=== PATIENT | male | born 1960 | race Caucasian/White ===

== ENCOUNTER 2020-07-11 08:46 | Outpatient (CLI) | payer OTHER, SELFPAY ==
--- NOTE | 2020-07-14 01:02 | SLEEP_ITS ---
Home Sleep Test DATE OF STUDY: 07/11/2020 ORDERING DOCTOR: Buck Daugherty MD REASON FOR THE STUDY: Hypersomnia. HISTORY: This 60-year-old man is 5 feet 10 inches tall, weighing 220 pounds, with a body mass index of 31.5. He has complaints of loud snoring. There is a family history with his parents also having loud snoring. He has excessive daytime sleepiness. He constantly snores and it is frequently loud enough that others complain about it. He does not awaken at night with heartburn, belching, or coughing. He does not awaken at night short of breath. He rarely has trouble sleeping with cold. Does not gasp for breath at night or have breathing problems at night witnessed by others. He does not sweat excessively at night and does not notice his heart pounding or beating irregularly at night. He occasionally falls asleep during the day, frequently involuntarily, rarely while driving. He does not fall asleep during physical effort. He does not have loss of muscle tone with strong emotion. He does not have daytime difficulties due to excessive sleepiness. He is an senior it engineer. He does not feel paralyzed on waking or falling asleep. He occasionally has vivid dreamlike scenes upon awakening or falling asleep. He is never afraid to go to sleep and does not have nightmares. He frequently remembers his dreams, occasionally has racing thoughts. He never feels sad or depressed. He rarely has anxiety. Does not have muscular tension. Does not notice parts of his body jerking. Does not kick at night. He rarely has crawly achy feelings in his legs, rarely has leg pain at night, never has morning jaw pain. He does not grind his teeth, there is no pain during the day, no pain waking him at night, no stiffness in the morning with sore achy muscles or pain in his neck and spine. He has fatigue. Normal bedtime is 10 p.m., falling asleep within 15 minutes waking 3 times at night on average for 3 minutes. During this time, he will go urinate. He wakes in the morning at 5 a.m. He estimates 6-7 hours of sleep at night. On the weekends, he goes to bed at 12 midnight and wakes at 8 in the morning. MEDICAL COMORBIDITIES: Seasonal allergies, but no other documented chronic problems. MEDICATIONS: None. HABITS: Never smoked tobacco. Caffeine, 4 servings a day. Alcohol, 1 time per week. DESCRIPTION OF THE STUDY: On the Spencer Sleepiness Scale, his score is 17, elevated. This was conducted as an unattended type III portable home sleep test with 4-channel monitoring including respiratory effort channel, snoring channel, oxygen saturation channel, and heart rate channel. The study was scored using [facility] guidelines. Duration of the study was 6 hours 54 minutes. Apnea-hypopnea index is 37, oxygen desaturation index 36, lowest desaturation 86% with 47 apneas. Majority of the apneas, 66% or 31 were obstructive, 28% or 13 were central, 6% or 3 apneas were mixed. He had 210 hypopneas, 1219 snoring events with 246 desaturations and 1 minute spent below 88%. IMPRESSION: 1. This home sleep test shows evidence of severe obstructive sleep apnea syndrome, G47.33, with a significant amount of central apneas as well. He had 28% of his apneas scored as central. The patient may respond to auto PAP. However, it is the fact that auto PAP can worsen central sleep apnea. Due to his severity of illness, we would recommend auto PAP with pressures between 5 to 15 cm of water pressure, heated humidity, and an appropriate interface. He should be closely followed for response to therapy and improvement in the apnea-hypopnea index with a goal to have his AHI less than 5. If the patient does not respond well to this therapy, consider in-lab split-night study. 2. Elevated body mass index 31.5
== END 2020-07-11 08:47 | disposition home or self-care (01) ==
LOC: ANHCSM 08:47
PROVIDERS: PCP Family Medicine; Visit Provider Family Medicine
DX: G47.33 Obstructive sleep apnea (adult) (pediatric) (principal)
CPT/HCPCS: 95806

== ENCOUNTER 2020-09-21 01:53 | Outpatient (CLI) | payer OTHER, SELFPAY ==
[2020-09-21 19:52] LABS: SARS-CoV-2 RNA PCR Negative
== END 2020-09-21 01:54 | disposition home or self-care (01) ==
LOC: ANHCOVIDDT 01:53
PROVIDERS: Anesthesiology; PCP Family Medicine; Visit Provider Otolaryngology
DX: Z01.812 Encounter for preprocedural laboratory examination (principal); Z20.828 Contact with and (suspected) exposure to other viral communicable diseases
CPT/HCPCS: 87635; C9803; U0003

== ENCOUNTER 2020-09-24 00:30 | Day surgery (SDC) | payer OTHER, SELFPAY ==
[2020-09-10 14:52] VITALS: BMI 31.4
[2020-09-24] VITALS (8 sets, daily range): BP systolic 132–141; BP diastolic 68–95; PULSE 63–120; RESP 12–22; TEMP 36.1–36.2; O2SAT 94–99
--- NOTE | 2020-09-24 07:25 | PM.IMHP ---
H&P: HPI History of Present Illness Date/Time: 09/24/20 07:25 Chief complaint: Deviated Septum/ Turbinate Hypertrophy Narrative: Eduardo Salamanca is a 60 year old male with severe PIPE AHI 37 who has a significant deviated septum interfering with ability to utilize CPAP. Review of Systems Review of Systems: All systems reviewed & are unremarkable except as noted in HPI and below PMFSH Past Medical History Medical History Hypersomnia Family History Family History Mother Family history of dementia, Onset Age: 97 Grandparent Family history of lung disease, Onset Age: 68 Family history of congestive heart failure, Onset Age: 87 Father Family history of congestive heart failure, Onset Age: 86 Social History Social History Smoking status: Never smoker Second hand tobacco smoke exposure: No Alcohol intake: current Substance use: never Living arrangements: with family Spiritual care concerns: No Meds Home Medications and Allergies Home Medications Medication Instructions Recorded Confirmed Type Adult One Daily Multivitamin 09/10/20 History [facility] 09/10/20 History ascorbate sodium (vitamin C) 09/10/20 History co [id number] oil-omega 3-E 09/10/20 History testosterone 09/10/20 History Allergies Allergy/AdvReac Type Severity Reaction Status Date / Time Penicillins Allergy Unknown Rash Verified 09/10/20 14:33 Exam Narrative: Exam Narrative: RIght septal deviation, AHI 37 Assessment and Plan Assessment and plan (1) Deviated nasal septum: Code(s): J34.2 - Deviated nasal septum Status: Acute Assessment and Plan: Here for septoplasty and turbinoplasty. Anticipate initiating CPAP after recovery from surgery. Refer to outpatient H&p for full details.
--- NOTE | 2020-09-24 07:27 | WPDHPUPDATE1 ---
History and Physical Update Update Date/Time: 09/24/20 07:27 History and Physical has been reviewed, including an updated exam of the patient. There are NO changes in the patient's condition. Risks, benefits, and alternatives have been discussed and questions answered. Patient agrees to proceed with procedure.
[2020-09-24] MEDS: OXYMETAZOLINE HCL 0.05% NAS 15 ML BTL (*BKC) 1 SPRAY NASAL (08:16)
[2020-09-24] MEDS: ACETAMINOPHEN 500 MG TABLET 1000 MG PO (08:16)
[2020-09-24] MEDS: LACTATED RINGERS 1,000 ML 30 ML IV CONT ×2 (08:25→10:17)
--- NOTE | 2020-09-24 08:29 | WPDANESEPPF ---
Anes - Initial Pre Proc Eval Procedure: Operation Date: 09/24/20 09:00 Proposed Procedures p Septoplasty - Edgar Flowers MD s Bilateral Turbinate Reduction - Edgar Flowers MD Date/Time: 09/24/20 08:29 Surgeon: Edgar Flowers MD Pre Op Diagnosis: Deviated Septum/ Turbinate Hypertrophy Patient Data Age: 60 Gender: M Height: 1.7 m Weight: 91 kg Allergies Allergy/AdvReac Type Severity Reaction Status Date / Time Penicillins Allergy Unknown Rash Verified 09/24/20 08:29 Home Medications Medication Instructions Recorded Confirmed Type Adult One Daily Multivitamin 09/10/20 History [facility] 09/10/20 History ascorbate sodium (vitamin C) 09/10/20 History co [id number]-twpz oil-omega 3-E 09/10/20 History testosterone 09/10/20 History Patient hx anesthesia problems: none Family hx anesthesia problems: none PMFSH Past Medical History Medical History Hypersomnia Family History Family History Mother Family history of dementia, Onset Age: 97 Grandparent Family history of lung disease, Onset Age: 68 Family history of congestive heart failure, Onset Age: 87 Father Family history of congestive heart failure, Onset Age: 86 Social History Social History Smoking status: Never smoker Second hand tobacco smoke exposure: No Alcohol intake: current Substance use: never Living arrangements: with family Spiritual care concerns: No Anes - Eval Final PreProcedure Day of Procedure 09/24/20 08:29 Patient weight: obese Heart: regular rate and rhythm Lungs: clear to auscultation and normal air movement Airway: Mallampati scale class II Neurological: alert and oriented Last oral intake: >/= 8 hours ASA classification: II Emergent: no Anesthetic plan: proceed Anesthesia type and monitoring: general ETT Informed Consent: The patient's anesthetic plan and its attendant risks and benefits were discussed with the patient/family/POA. Questions were solicited and answers provided to the satisfaction of the patient/family/POA.
[2020-09-24] MEDS: ceFAZolin 2 GM/D5W 50 ML 2 GM/50 ML BAG IVPB (08:48)
[2020-09-24] MEDS: LIDO 1%/EPINEPHRINE 1:100,000 20 ML VIAL INFILTRATE (09:11)
--- NOTE | 2020-09-24 10:13 | P.OP_ITS ---
Procedure Note - Detailed Date of procedure: 09/24/20 Pre-op diagnosis: Deviated Septum/ Turbinate Hypertrophy Post-op diagnosis: same Procedure performed: Septoplasty, bilateral inferior turbinoplasty Description of procedure: DESCRIPTION OF PROCEDURE: ? After obtaining informed consent and proper site verification the patient was brought to the operating room and placed on the operating table in the supine position. They were placed under general endotracheal anesthesia by the anesthesia provider. The patient was then draped in standard fashion for septoplasty and turbinoplasty. A timeout was performed and the correct patient and procedure were verified. The nasal cavity was injected with 1% lidocaine with 1-100,000 epinephrine and packed with afrin-soaked cottonoid pledgets. ? Attention was then directed to the nasal septum. A hemitransfixion incision was made in the left caudal septum and a mucoperichondrial flap was elevated in the usual fashion. The flap was elevated under endoscopic visualization and the remainder of the case was performed with endoscopic assistance. Using a D- knife, an incision was made through the cartilaginous septum with care to preserve the appropriate caudal and dorsal ?L-strut? of cartilage. The cartilage was then disarticulated from the bony-cartilaginous junction and the deviated cartilage was removed. Further deviated bone and cartilage was removed from the maxillary crest and posterior bony septum with care to avoid injury to the mucoperichondrial flap using a combination of dissection and Alexis- Cisco forceps. Once this was completed, the hemitransfixion incision was closed using simple interrupted 4-0 chromic suture. A quilting stitch to reapproximate the mucoperichondrial flaps was then placed using 4-0 plain gut suture on a Tha needle. ? Next attention was directed to the turbinates. Using a 0? telescope and 2mm turbinate blade microdebrider, a stab incision was made in the anterior face of the turbinate and dissection was carried posterior to perform submucosal resection. Next the turbinate was outfractured using a blunt instrument. A similar procedure was then performed on the right-hand side without difficulty. Rodriguez splints covered in mupirocin ointment were placed in the nasal cavity and secured to the membranous septum using a 3-0 Prolene suture. ?The patient was awakened from general anesthesia extubated in the operating room, and transpo rted to the recovery room in stable condition without complication. Anesthesia: GREGORIO Surgeon: Edgar Flowers MD Estimated blood loss (mL): 10 Drains: No Packing: Yes (rodriguez splints) Pathology: none sent Complications: No immediate complications Condition: stable Disposition: same day Findings: Severe right septal deviation
[2020-09-24] MEDS: fentaNYL CITRATE INJ (*CRX) 100 MCG/2 ML VIAL 25 MCG IV PUSH (10:27)
== END 2020-09-24 12:20 | disposition home or self-care (01) ==
PROVIDERS: PCP Family Medicine; Visit Provider Otolaryngology
PROC: (CPT 30520; principal; 2020-09-24 09:00)
PROC: (CPT 30140; 2020-09-24 09:00)
DX: J34.2 Deviated nasal septum (principal); J34.3 Hypertrophy of nasal turbinates
CPT/HCPCS: 30140; 30520; A9270; J0330; J0690; J1100; J2250; J2370; J2405; J2704; J3010; J7120

== ENCOUNTER 2021-09-13 01:41 | Day surgery (SDC) | payer OTHER, SELFPAY ==
[2021-08-29 14:25] VITALS: BMI 25.9
--- NOTE | 2021-09-12 12:45 | PM.HPGS ---
History of Present Illness History of Present Illness Consent: Risks, benefits, and alternatives have been discussed and questions answered. Patient agrees to proceed with procedure. Chief complaint: family hx of colon ca Narrative: Eduardo Salamanca is a 61 year old male referred for colon cancer screening. 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 Obstructive sleep apnea Family History Family History Mother Family history of dementia, Onset Age: 97 Grandparent Family history of lung disease, Onset Age: 68 Family history of congestive heart failure, Onset Age: 87 Father Family history of congestive heart failure, Onset Age: 86 Social History Social History Smoking status: Never smoker Second hand tobacco smoke exposure: No Alcohol intake: current Drinks per week: 4 Substance use: never Substance use type: does not use Living arrangements: with family Spiritual care concerns: No Meds Home Medications and Allergies Home Medications Medication Instructions Recorded Confirmed Type Adult One Daily Multivitamin 1 tablet PO DAILY 09/10/20 09/13/21 History [facility] 1 tablet PO DAILY 09/10/20 09/13/21 History ascorbate sodium (vitamin C) 1 tablet PO DAILY 09/10/20 09/13/21 History co [id number] oil-omega 3-E 1 tablet PO DAILY 09/10/20 09/13/21 History testosterone 1 tablet PO DAILY 09/10/20 09/13/21 History fluticasone propionate 50 1 spray INTRANASAL BID 04/22/21 09/13/21 History mcg/actuation nasal spray,suspension loratadine 10 mg tablet 10 mg PO DAILY PRN 04/22/21 09/13/21 History Allergies Allergy/AdvReac Type Severity Reaction Status Date / Time Penicillins Allergy Unknown Rash Verified 09/13/21 12:50 Exam Resp: Auscultation: clear to auscultation bilaterally Cardio: Rate: regular rate Rhythm: regular rhythm GI: GI Palp: Yes Soft to palpation and No Tenderness to palpation present (GI) Assessment and Plan Assessment and plan (1) Colon cancer screening: Code(s): Z12.11 - Encounter for screening for malignant neoplasm of colon Status: Acute Assessment and Plan: Colonoscopy with possible biopsy or polypectomy or cautery or injection of substances.
[2021-09-13 12:54] VITALS: BP 131/80; PULSE 73; RESP 18; TEMP 36.6; O2SAT 100
[2021-09-13] MEDS: LACTATED RINGERS 1,000 ML 150 ML IV CONT (13:04)
--- NOTE | 2021-09-13 13:19 | WPDANESEPPF ---
Anes - Initial Pre Proc Eval Procedure: Operation Date: 09/13/21 13:30 Proposed Procedures p Screening Colonoscopy - Abdulkadir Jon MD Date/Time: 09/13/21 13:19 Surgeon: Abdulkadir Jon MD Pre Op Diagnosis: family hx of colon ca Patient Data Age: 61 Gender: M Height: 1.78 m Weight: 78.1 kg Last Vital Signs Temp 36.6 C 09/13/21 12:54 Pulse 73 09/13/21 12:54 Resp 18 09/13/21 12:54 BP 131/80 09/13/21 12:54 Pulse Ox 100 09/13/21 12:54 Allergies Allergy/AdvReac Type Severity Reaction Status Date / Time Penicillins Allergy Unknown Rash Verified 09/13/21 12:50 Home Medications Medication Instructions Recorded Confirmed Type Adult One Daily Multivitamin 1 tablet PO DAILY 09/10/20 09/13/21 History [facility] 1 tablet PO DAILY 09/10/20 09/13/21 History ascorbate sodium (vitamin C) 1 tablet PO DAILY 09/10/20 09/13/21 History co [id number] oil-omega 3-E 1 tablet PO DAILY 09/10/20 09/13/21 History testosterone 1 tablet PO DAILY 09/10/20 09/13/21 History fluticasone propionate 50 1 spray INTRANASAL BID 04/22/21 09/13/21 History mcg/actuation nasal spray,suspension loratadine 10 mg tablet 10 mg PO DAILY PRN 04/22/21 09/13/21 History Patient hx anesthesia problems: none Family hx anesthesia problems: none Results Review: All pre-operative results and documents have been reviewed as part of the pre-operative evaluation. 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 Obstructive sleep apnea Family History Family History Mother Family history of dementia, Onset Age: 97 Grandparent Family history of lung disease, Onset Age: 68 Family history of congestive heart failure, Onset Age: 87 Father Family history of congestive heart failure, Onset Age: 86 Social History Social History Smoking status: Never smoker Second hand tobacco smoke exposure: No Alcohol intake: current Drinks per week: 4 Substance use: never Substance use type: does not use Living arrangements: with family Spiritual care concerns: No Anes - Eval Final PreProcedure Day of Procedure 09/13/21 13:19 Patient weight: normal Heart: regular rate and rhythm Lungs: clear to auscultation Airway: Mallampati scale class II Neurological: alert and oriented Last oral intake: >/= 8 hours ASA classification: II Emergent: no Anesthetic plan: proceed Anesthesia type and monitoring: general GIVS and standard monitoring Results Review: All pre-operative results and documents have been reviewed as part of the pre-operative evaluation. Informed Consent: The patient's anesthetic plan and its attendant risks and benefits were discussed with the patient/family/POA. Questions were solicited and answers provided to the satisfaction of the patient/family/POA.
[2021-09-13] MEDS: SIMETHICONE ORAL SUSPENSION 20 MG/0.3 ML 30 ML BOTTLE 0.6 ML IRRIGATION (13:46)
[2021-09-13 13:58] VITALS: BP 99/61; PULSE 73; RESP 19; O2SAT 99
[2021-09-13 14:08] VITALS: BP 99/66; PULSE 66; RESP 22; O2SAT 100
[2021-09-13 14:18] VITALS: BP 109/71; PULSE 61; RESP 23; O2SAT 100
== END 2021-09-13 14:32 | disposition home or self-care (01) ==
PROVIDERS: PCP Family Medicine; Visit Provider Internal Medicine Gastroenterology
PROC: 0DJD8ZZ Inspection of Lower Intestinal Tract, Via Natural or Artificial Opening Endoscopic (ICD-10-PCS; CPT 45378; principal; 2021-09-13 13:30)
DX: Z12.11 Encounter for screening for malignant neoplasm of colon (principal); Z80.0 Family history of malignant neoplasm of digestive organs; K64.8 Other hemorrhoids; G47.10 Hypersomnia, unspecified; G47.33 Obstructive sleep apnea (adult) (pediatric)
CPT/HCPCS: 45378; J2001; J2704; J7120

== ENCOUNTER 2023-10-07 11:16 | Inpatient (IN) | payer OTHER, SELFPAY ==
[2023-10-07] VITALS (13 sets, daily range): BP systolic 123–135; BP diastolic 69–85; PULSE 67–96; RESP 13–23; TEMP 36.2–37.4; O2SAT 95–100; BMI 26.6
--- NOTE | ~2023-10-07 | XR_ITS ---
Clinical Indication: Fever PA and lateral views of the chest: Comparison: None Findings: The lungs are clear, without evidence of focal consolidation or pleural effusion. Cardiome diastinal silhouette is within normal limits. Bones and soft tissues are unremarkable. Impression: Normal chest. Reviewed, dictated and finalized at [facility]. PER FEEDER Impression: Normal chest.
--- NOTE | ~2023-10-07 | CT_ITS ---
EXAMINATION: CT chest abdomen pelvis wo con DATE: 10/07/2023 15:30 INDICATION: Sepsis. TECHNIQUE: Computed tomography (CT) of the chest, abdomen, and pelvis was performed without intraveno us contrast. Automated exposure control and iterative reconstruction technique were employed. The dos e-length product was 944.73 mGy-cm. COMPARISON: None FINDINGS: CHEST CT: The lungs demonstrate mild atelectasis. There is hyperdense material in posterior inferior right lowe r lobe and subcarinal lymph nodes that may be old granulomatous disease or old aspirated material suc h as barium. There is a trace right pleural effusion. The heart size is normal. There is a small mihir cardial effusion. There are coronary artery calcifications. There is severe thoracic spondylosis. The re is mild chronic anterior wedging of multiple vertebral bodies. ABDOMEN/PELVIS CT: The liver is normal. The gallbladder is contracted. The spleen, pancreas, adrenal glands, and left ki dney are normal. The right kidney is enlarged and demonstrates areas of peripheral hypoattenuation. T he prostate is mildly enlarged. The appendix is normal. There are no dilated loops of bowel. There ar e no pathologically enlarged lymph nodes. There is no free intraperitoneal fluid. There is a right in guinal hernia containing fat. There is mild lumbar spondylosis. IMPRESSION: 1. Enlarged right kidney with peripheral hypoattenuation. The differential diagnosis includes pyelone phritis and subacute subcapsular hematoma. Consider abdomen MRI without and with contrast. 2. Small pericardial effusion. Reviewed, dictated and finalized at location A. [employer] IMPRESSION: 1. Enlarged right kidney with peripheral hypoattenuation. The differential diag nosis includes pyelonephritis and subacute subcapsular hematoma. Consider abdom en MRI without and with contrast. 2. Small pericardial effusion.
--- NOTE | ~2023-10-07 | US_ITS ---
EXAMINATION: US renal BI DATE: 10/08/2023 19:01 INDICATION: Acute renal insufficiency. Abnormal CT . TECHNIQUE: Multiple ultrasound grayscale images of the kidneys were obtained. COMPARISON: None. FINDINGS: The right kidney measures 11.3 x 6.6 x 5.7 cm. The left kidney measures 11.1 x 7.0 x 5.8 cm. The kidn eys demonstrate normal echogenicity. Suggestion of minimal perinephric fluid along the right kidney. There is no hydronephrosis in either kidney. No stones identified. The bladder is normal with bilate ral ureteral jets visualized on color Doppler.. IMPRESSION: 1. Nonspecific minimal right perinephric fluid. Otherwise normal kidneys without hydronephrosis. Reviewed, dictated and finalized at location A. [employer] IMPRESSION: 1. Nonspecific minimal right perinephric fluid. Otherwise normal kidneys witho ut hydronephrosis.
--- NOTE | ~2023-10-07 | US_ITS ---
EXAMINATION: US abdomen limited DATE: 10/07/2023 17:13 INDICATION: sepsis, elevated LFTs TECHNIQUE: Multiple grayscale and Doppler ultrasound images of limited portions of the abdomen were o btained. COMPARISON: None available. FINDINGS: The visualized portions of the pancreas are normal. The liver is normal with normal echogen icity and echotexture. No surface nodularity. Normal hepatopetal flow in the main portal vein. The ga llbladder is contracted, no abnormal wall thickening, pericholecystic fluid or stones. The common gabrielle e duct measures 7 mm. There was no sonographic Justice sign. IMPRESSION: Contracted gallbladder which limits evaluation. No pericholecystic fluid or stones. Otherwise normal limited abdominal ultrasound findings. Reviewed, dictated and finalized at location [facility]. [facility] IMPRESSION: Contracted gallbladder which limits evaluation. No pericholecystic fluid or sto marzena. Otherwise normal limited abdominal ultrasound findings.
--- NOTE | 2023-10-07 12:07 | ED.HA ---
HPI - Headache General Chief Complaint: Headache Stated Complaint: headache, fever since thursday Time Seen by Provider: 10/07/23 12:03 History of Present Illness HPI Narrative: Patient is a 63-year-old male with no past medical history here today with fatigue, headache, diarrhea. Patient states that he began feeling sick the day after , 10/02. Patient notes that the symptoms began with chills, fever and diarrhea. He denies any known sick contacts. He did see family over . He notes that he called his primary care doctor on Thursday and they prescribed him ciprofloxacin for a ?infection ?. He is unsure of what type of infection they are treating. He does note a mild cough, no nasal congestion, no chest pain, no shortness of breath. He notes that since taking the antibiotics his fever does seem to have resolved but he continues to feel poorly. He notes generalized fatigue, decreased PO intake, and high sensitivity over all of his skin and head. Related Data Home Medications Medication Instructions Recorded Confirmed Adult One Daily Multivitamin 1 tablet PO DAILY 09/10/20 10/07/23 [facility] 1 tablet PO DAILY 09/10/20 10/07/23 ascorbate sodium (vitamin C) 1 tablet PO DAILY 09/10/20 10/07/23 co [id number] oil-omega 3-E 1 tablet PO DAILY 09/10/20 10/07/23 fluticasone propionate 50 1 spray intranasal BID 04/22/21 10/07/23 mcg/actuation nasal spray,suspension loratadine 10 mg tablet (Claritin) 10 mg PO DAILY PRN allergy symptoms 04/22/21 10/07/23 Allergies Allergy/AdvReac Type Severity Reaction Status Date / Time Penicillins Allergy Unknown Rash Verified 10/07/23 11:36 Review of Systems Review of Systems: All systems reviewed & are unremarkable except as noted in HPI and below PMFSH Past Medical History Medical History (Updated 10/07/23 @ 17:15 by Sahra Denny MD) Abdominal pain BMI 26.0-26.9,adult BMI 28.0-28.9,adult BMI 31.0-31.9,adult Central sleep apnea Colon cancer screening COVID-19 (~11/20/21) Encounter for wellness examination in adult Hypersomnia Hypogonadism male Total testosterone 400, free testosterone 49.5 on 12/02/2022. 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 Obstructive sleep apnea Overweight (BMI 25.0-29.9) Family History Family History Mother Family history of dementia, Onset Age: 97 Grandparent Family history of lung disease, Onset Age: 68 Family history of congestive heart failure, Onset Age: 87 Father Family history of congestive heart failure, Onset Age: 86 Social History Social History (Updated 12/11/22 @ 16:35 by Samantha Aparicio MA) Smoking status: Never smoker Second hand tobacco smoke exposure: No Alcohol intake: current Drinks per week: 3 Substance use: never Substance use type: does not use Lack of Transportation: No Lack of Food: Never True Current Housing: I Have Housing Concerned About Future Housing: No Difficulty Paying Gas/Electric Bills: No Difficulty Paying for Meds: No Currently Unemployed: No Education: Associate Degree Difficulty w/ Childcare or Family Care: No Living arrangements: with family Spiritual care concerns: No Exam Narrative: GENERAL: Well-appearing, well-nourished, and in no acute distress. HEAD: Normocephalic, atraumatic. EYES: PERRLA and EOMI. ENT: Nares clear. Mucous membranes dry. NECK: Supple. CHEST: Clear to auscultation. No respiratory distress. HEART: Regular rate and rhythm. Normal peripheral pulses. ABDOMEN: Soft, nontender, nondistended. EXTREMITIES: Normal range of motion. No edema. SKIN: Warm, dry, no rash. NEURO: No focal deficits. Alert and oriented x3. PSYCH: Normal mood and affect. Course Course Emergency Course: Chart review performed. Here with headache, fever, decreased appetite since Thursday. Triage vitals normal, afebrile. Primary care
[2023-10-07 12:22] LABS: Influenza A QL RT-PCR Negative (Negative); Influenza B QL RT-PCR Negative (Negative); SARS-CoV-2 RNA PCR Negative (Negative)
[2023-10-07] MEDS: SODIUM CHLORIDE 0.9% IV 1,000 ML 999 ML IV CONT ×3 (13:36→16:26)
[2023-10-07] MEDS: ONDANSETRON INJ 4 MG/2 ML VIAL IV PUSH (13:36)
[2023-10-07] MEDS: ACETAMINOPHEN 500 MG TABLET 1000 MG PO (13:37)
[2023-10-07 13:43] LABS: Basophils Absolute Auto 0.1 K/mm3 (0.0-0.1); Basophils Percent Auto 0.4 % (0.2-1.2); Hematocrit 40.3 % (42.0-52.0); Hemoglobin 14.2 g/dL (14.0-18.0); Immature Granulocyte Absolute 0.41 K/mm3 (0.00-0.031); Immature Granulocyte Percent A 2.5 % (0-0.5); Lymphocytes Absolute Auto 0.66 K/mm3 (0.9-3.2); Lymphocytes Percent Auto 4.1 % (18.3-44.2); Mean Corpuscular HGB Conc 35.2 g/dl (32-36); Mean Corpuscular Hemoglobin 29.3 pg (26-34); Mean Corpuscular Volume 83.1 fl (80-100); Mean Platelet Volume 10.8 fl (7.4-10.4); Monocytes Absolute Auto 1.9 K/mm3 (0.1-0.6); Monocytes Percent Auto 11.7 % (2.6-8.5); Neutrophils Absolute Auto 13.1 K/mm3 (1.3-6.7); Neutrophils Percent Auto 81.3 % (45.5-73.1); Platelet Count Result 172 k/mm3 (150-375); Red Blood Count 4.85 M/mm3 (4.6-6.20); Red Cell Distribution Width 14.5 % (11.5-14.5); White Blood Count 16.1 K/mm3 (4.5-10.0)
[2023-10-07 14:29] LABS: Alanine Aminotransferase 177 U/L (6-50); Albumin Level 3.5 g/dL (3.5-5.1); Alkaline Phosphatase 251 U/L (38-126); Anion Gap 11 mmol/L (8-16); Aspartate Amino Transferase 185 U/L (17-59); Bilirubin,Total 1.2 mg/dL (0.2-1.3); Blood Urea Nitrogen 83 mg/dL (9-20); Calcium 9.2 mg/dL (8.4-10.2); Carbon Dioxide 26 mmol/L (22-30); Chloride 92 mmol/L (98-107); Estimated Glomerular Filt Rate 17; Glucose 136 mg/dL (65-110); Magnesium 2.9 mg/dL (1.6-2.3); Potassium 3.2 mmol/L (3.4-5.0); Sodium 129 mmol/L (137-145)
[2023-10-07 14:51] LABS: Appearance Urine Cloudy (Clear); Bacteria Urine None Seen /hpf; Bilirubin Urine Negative (Negative); Blood Urine 2+ (Negative); Color Urine Yellow (Yellow); Glucose Urine UA Negative (Negative); Ketones Urine Negative (Negative); Leukocyte Esterase Ur Negative LEU/UL (Negative); Need Manual Microscopic Reviewed; Nitrate Urine Negative (Negative); Non Pathogenic Casts >20; Protein Urine 2+ mg/dL (Negative); RBC Urine 0-2 /hpf (0-2); Specific Grav Ur 1.011 (1.001-1.035); Squamous Epithelial Cell Urine Few /hpf (Few); Urobilinogen Urine 0.2 mg/dL (<2.0); WBC Urine 0-5 /hpf
[2023-10-07 14:54] LABS: Add Urine Microscopic? YES
[2023-10-07 15:06] LABS: CRP 33.2 mg/dL (<1.0)
[2023-10-07 16:06] LABS: Lipase 78 U/L (23-300)
[2023-10-07 16:07] LABS: Lactic Acid Reflex 1.1 mmol/L (0.7-2.0)
[2023-10-07] MEDS: CEFEPIME 2 GM/NS 50 ML 2 GM/50 ML BAG IVPB (17:37)
--- NOTE | 2023-10-07 18:45 | ADMGEN ---
This patient, Eduardo Salamanca, was admitted to [facility] Surg Room 320-01. Patient/family oriented to hospital policies and general routines including ID bracelet, bed and alarms, visiting hours, pain management, procedures, bathroom and other care routines, personal items, smoking policy, room service/diet, and visiting hours. Information on how to activate the Rapid Response Team has been discussed. Patient/Family are encouraged to report perceived risks to care and to ask questions if they do not understand what they are told or what they should do.
--- NOTE | 2023-10-07 20:28 | PM.IMHP ---
H&P: HPI History of Present Illness Date/Time: 10/07/23 20:28 Chief Complaint: DIARRHEA Narrative: THIS IS A 63-YEAR-OLD MALE WITH NO SIGNIFICANT PAST MEDICAL HISTORY. PATIENT PRESENTS TO THE EMERGENCY ROOM DUE TO 3-4 DAYS OF GENERALIZED MALAISE, CHILLS, FEVERS, ABDOMINAL PAIN, DIARRHEA, NO VOMITING NO NAUSEA. PATIENT HAD BEEN TO THE URGENT CARE AND HE WAS PRESCRIBED CIPROFLOXACIN BUT WAS NOT HELPING. PRELIMINARY WORKUP WAS SIGNIFICANT FOR ABNORMAL LFTS AND CT OF ABDOMEN AND PELVIS SHOWED KIDNEY HYPOTENSION ON. PATIENT IS BEING PLACED IN OBSERVATION FOR FURTHER EVALUATION MANAGEMENT AND TREATMENT. Clinical Indication: Fever ?PA and lateral views of the chest: Comparison: None Findings: The lungs are clear, without evidence of focal consolidation or pleural effusion.? Cardiomediastinal silhouette is within normal limits. Bones and soft tissues are unremarkable. ? Impression: ? Normal chest. EXAMINATION: CT chest abdomen pelvis wo con DATE: 10/07/2023 15:30 INDICATION: Sepsis. TECHNIQUE: Computed tomography (CT) of the chest, abdomen, and pelvis was performed without intravenous contrast. Automated exposure control and iterative reconstruction technique were employed. The dose-length product was 944.73 mGy-cm. COMPARISON: None FINDINGS: CHEST CT: The lungs demonstrate mild atelectasis. There is hyperdense material in posterior inferior right lower lobe and subcarinal lymph nodes that may be old granulomatous disease or old aspirated material such as barium. There is a trace right pleural effusion. The heart size is normal. There is a small pericardial effusion. There are coronary artery calcifications. There is severe thoracic spondylosis. There is mild chronic anterior wedging of multiple vertebral bodies. ABDOMEN/PELVIS CT: The liver is normal. The gallbladder is contracted. The spleen, pancreas, adrenal glands, and left kidney are normal. The right kidney is enlarged and demonstrates areas of peripheral hypoattenuation. The prostate is mildly enlarged. The appendix is normal. There are no dilated loops of bowel. There are no pathologically enlarged lymph nodes. There is no free intraperitoneal fluid. There is a right inguinal hernia containing fat. There is mild lumbar spondylosis. IMPRESSION: 1. Enlarged right kidney with peripheral hypoattenuation. The differential diagnosis includes pyelonephritis and subacute subcapsular hematoma. Consider abdomen MRI without and with contrast. 2. Small pericardial effusion. EXAMINATION: US abdomen limited DATE:? 10/07/2023 17:13 INDICATION: sepsis, elevated LFTs TECHNIQUE: Multiple grayscale and Doppler ultrasound images of limited portions of the abdomen were obtained. COMPARISON: None available. FINDINGS: The visualized portions of the pancreas are normal. The liver is normal with normal echogenicity and echotexture. No surface nodularity. Normal hepatopetal flow in the main portal vein. The gallbladder is contracted, no abnormal wall thickening, pericholecystic fluid or stones. The common bile duct measures 7 mm. There was no sonographic Justice sign. IMPRESSION: Contracted gallbladder which limits evaluation. No pericholecystic fluid or stones. Otherwise normal limited abdominal ultrasound findings. Review of Systems Review of Systems: ABDOMINAL PAIN, DIARRHEA, CHILLS, FEVERS. Constitutional: Constitutional: Reports chills, Reports fever(s), Reports malaise and Reports poor appetite Eyes: Eyes: Denies change in vision ENT: Denies dysphagia and Denies odynophagia Cardiovascular: Cardiovascular: Denies chest pain, Denies radiating jaw, neck or arm pain and Denies palpitations Respiratory: Respiratory: Denies cough, Denies dyspnea and Denies wheezing Gastrointestinal: Gastrointestinal: Reports abdominal pain, Denies melena, Denies hematochezia, Denies coffee ground emesis, Denies dyspepsia, Denies heartburn, Reports diarrhea, Reports nausea and Reports vomitin
[2023-10-08] MEDS: CLINDAMYCIN 900 MG/D5W 50 ML 900 MG/50 ML PIGGYBACK 50 MG IVPB ×3 (03:03→17:22)
[2023-10-08 05:38] VITALS: BP 120/65; PULSE 73; RESP 16; TEMP 37; O2SAT 94
[2023-10-08 06:08] LABS: Hemoglobin 12.9 g/dL (14.0-18.0); Mean Corpuscular HGB Conc 33.1 g/dl (32-36); Mean Corpuscular Hemoglobin 28.3 pg (26-34); Mean Corpuscular Volume 85.5 fl (80-100); Mean Platelet Volume 10.5 fl (7.4-10.4); Platelet Count Result 190 k/mm3 (150-375); Red Blood Count 4.56 M/mm3 (4.6-6.20); Red Cell Distribution Width 15.1 % (11.5-14.5)
[2023-10-08 06:20] LABS: Alanine Aminotransferase 144 U/L (6-50); Albumin Level 3.2 g/dL (3.5-5.1); Alkaline Phosphatase 206 U/L (38-126); Anion Gap 9 mmol/L (8-16); Aspartate Amino Transferase 105 U/L (17-59); Bilirubin,Total 1.2 mg/dL (0.2-1.3); Blood Urea Nitrogen 77 mg/dL (9-20); Calcium 8.5 mg/dL (8.4-10.2); Carbon Dioxide 23 mmol/L (22-30); Chloride 100 mmol/L (98-107); Estimated CRCL calculation 21 ml/min; Estimated Glomerular Filt Rate 18; Glucose 120 mg/dL (65-110); Potassium 3.5 mmol/L (3.4-5.0); Sodium 132 mmol/L (137-145)
[2023-10-08] MEDS: FLUTICASONE PROPIONATE 0.05% NA SPR 16 GM BTL (*BKC) 1 SPRAY NASAL ×2 (08:57→16:30)
--- NOTE | 2023-10-08 13:27 | PCCCNOTE ---
On 10/08/23, the student, [Sarah Mitchell], provided care and completed [facility] documentation on this patient. I have reviewed the student's documentation and agree with the findings.
[2023-10-08 14:00] VITALS: BP 123/55; PULSE 80; RESP 18; TEMP 36.9; O2SAT 98
--- NOTE | 2023-10-08 14:42 | PM.IMPN ---
Progress Note: A&P Assessment and Plan (1) Diarrhea: Code(s): R19.7 - Diarrhea, unspecified Status: Acute Assessment and Plan: stool cultures to collect add cdif testing if stool is watery (2) Pyelitis: Code(s): N12 - Tubulo-interstitial nephritis, not specified as acute or chronic Status: Acute Assessment and Plan: IV clindamycin, IV vancomycin and IV rocephin CT chest abdo/ pelvis shows pyelonephritis watch wcc (3) MIRA (acute kidney injury): Code(s): N17.9 - Acute kidney failure, unspecified Status: Acute Assessment and Plan: watch kidney function continue fluids watch UO consider MRi abdomen i creat worsens consult nephrology Subjective Date/time seen: 10/08/23 14:42 Interval history: 63 year old male admitted with diarrhea and abdominal pains ct abdomen showed - Enlarged right kidney with peripheral hypoattenuation. The differential diagnosis includes pyelonephritis and subacute subcapsular hematoma. Consider abdomen MRI without and with contrast. Possibly pyelonephritis plan to continue iv abx and collect stool culture today. If stool is very watery cdif can be collected. Review of Systems Review of Systems: Ongoing diarrhea Exam Narrative: PATIENT IS LAYING IN BED Const: General: comfortable, no acute distress, well developed, alert, awake and average body habitus Nutritional Appearance: average body habitus Orientation/consciousness: patient oriented x3 Other: ACUTELY ILL-APPEARING HENMT: Head: normal to inspection, normocephalic and atraumatic Ears: hearing grossly normal bilaterally Face/Nose/Sinus: normal facial exam Face and sinus: normal facial exam Eyes: General: appearance normal, both eyes and all related structures Pupils: Equal, round and reactive pupils present EOM: EOMs intact bilaterally Neck: Neck: full ROM, no lymphadenopathy and no JVD Thyroid: thyroid normal Lymphatic: no lymphadenopathy noted Resp: Effort & Inspection: normal respiratory effort and able to speak in complete sentences Auscultation: clear to auscultation bilaterally Cardio: Jugular venous distension: no JVD Rate: regular rate Rhythm: regular rhythm Heart sounds: S1 normal heart sound present and S2 normal heart sound present GI: Inspection: normal to inspection GI Palp: Yes Soft to palpation, Yes Tenderness to palpation present (GI), No Guarding due to palpation present (GI), Yes No hepatosplenomegaly present and No Rebound tenderness present : General: Yes deferred Skin: Rashes: no rashes Wounds: no wounds Neuro: General: patient oriented x3 and CN's II-XI intact bilaterally Cranial nerves: Yes CN's II-XII intact bilaterally and Yes Equal, round and reactive pupils present Cognition (Neuro): normal cognition Speech: normal speech Gait exam (Neuro): Unable to assess gait Motor exam (neuro): 5/5 motor strength present throughout Extrem: General: normal to inspection, full ROM, no joint enlargement and no pedal edema Objective Data Vital Signs Vital Signs: Vital Signs - 24 hr 10/07/23 16:13 10/07/23 15:00 10/07/23 16:01 Temperature Pulse Rate 70 79 67 Respiratory Rate 18 20 18 Blood Pressure 127/74 127/74 Pulse Oximetry 98 95 100 Oxygen Delivery 10/07/23 17:24 10/07/23 18:11 10/07/23 18:15 Temperature Pulse Rate 74 72 73 Respiratory Rate 13 21 H 22 H Blood Pressure 125/72 129/76 Pulse Oximetry 96 97 100 Oxygen Delivery 10/07/23 18:49 10/07/23 20:45 10/07/23 20:00 Temperature 36.7 C 37.4 C Pulse Rate 73 80 Respiratory Rate 16 16 Blood Pressure 132/69 135/71 Pulse Oximetry 100 97 Oxygen Delivery Room Air 10/08/23 05:38 10/08/23 09:00 10/08/23 14:00 Temperature 37.0 C 36.9 C Pulse Rate 73 80 Respiratory Rate 16 18 Blood Pressure 120/65 123/55 L Pulse Oximetry 94 98 Oxygen Delivery Room Air Intake/Output Intake/Output: Intake & Output 10/05/2309/10
--- NOTE | 2023-10-08 14:50 | PM.CNNEP ---
Assessment and Plan Assessment and plan (1) MIRA (acute kidney injury): Code(s): N17.9 - Acute kidney failure, unspecified Status: Acute Assessment and Plan: normal baseline creatinine earlier this year presumably secondary to poor oral intake/GI losses and infection imaging noted -- enlarged right kidney with peripheral hypoattenuation. The differential diagnosis includes pyelonephritis and subacute subcapsular hematoma. check urine studies and consider renal u/s +/- abdominal MRI depending on trend of kidney function agree with IVF hydration for now follow repeat labs and UOP (2) Abdominal pain: Code(s): R10.9 - Unspecified abdominal pain Status: Acute Assessment and Plan: related to #3 and #4 (?) CT imaging and abdominal ultrasound noted continue supportive therapy (3) Diarrhea: Code(s): R19.7 - Diarrhea, unspecified Status: Acute Assessment and Plan: unclear etiology stool studies and C. diff toxin assay ordered IVF hydration follow symptoms (4) Pyelitis: Code(s): N12 - Tubulo-interstitial nephritis, not specified as acute or chronic Status: Acute Assessment and Plan: as suggested by admission CT scan follow culture data on antibiotics I will continue follow patient with you while he remains hospitalized and make further recommendations as needed. Thank you for allowing me to participate in care of this patient. History of Present Illness Reason for Consult Consult date: 10/08/23 Reason for consult: acute renal failure Chief Complaint Chief complaint: Pyelonephritis History of Present Illness Narrative: The patient is a 63-year-old male with no significant past medical history who presented to [facility] Emergency Room for further evaluation of generalized weakness, headaches, and diarrhea. The patient reports that he started feeling sick right after . His symptoms included subjective chills, fevers, and diarrhea. He denies any known sick contacts although he did have family over during the holidays. He called his primary care physician the Thursday after due to his symptoms and he was prescribed oral antibiotics, specifically ciprofloxacin, for a suspected infection all the details of what infection is not clear. Other associated symptoms include a mild cough but no nasal congestion, rhinorrhea, chest pain, or shortness of breath. He does report that since taking the antibiotics his fevers have resolved but he still continues to feel quite poorly. He also reports poor oral intake and increased sensitivity to touch all over his body. Given the persistence of the symptoms and lack of improvement in the last few days, he came to the emergency room for further assessment Workup and evaluation emergency room demonstrated the patient be hemodynamically stable and in no acute distress. Routine blood work was significant for elevated white blood cell count with a left shift and evidence of acute kidney injury/acute renal failure with a significantly elevated BUN and creatinine far above his normal baseline. Furthermore, his urinalysis was somewhat suggestive of a possible infection and given the constellation of symptoms that led to his presentation to the emergency room, he had a CT scan of his chest/abdomen/pelvis which was significant for enlarged right kidney with peripheral hypoattenuation suggestive of pyelonephritis and/or subacute subcapsular hematoma. after appropriate cultures were obtained, he was started on IV antibiotic therapy and subsequently admitted to the hospital for further evaluation and therapy. Since his admission, his renal function has improved only mildly and he still continues to feel quite poorly. His major complaint is that of his headaches and generalized weakness much as they were on presentation. Renal consultation was requested due to his acu
[2023-10-08] MEDS: SODIUM CHLORIDE 0.9% IV 1,000 ML 75 ML IV CONT (16:29)
[2023-10-08 22:00] VITALS: BP 129/63; PULSE 77; RESP 14; TEMP 37.4; O2SAT 97
[2023-10-08 23:21] LABS: Creatinine Urine 81.9 mg/dL; Total Protein Urine Random 58 mg/dL; Ur Ttl Prot Creatinine Ratio 0.71 mg/mg (0-0.20); Urea Random Urine 678 MG/DL
[2023-10-08 23:27] LABS: Sodium Urine Random 33 meq/L
[2023-10-08 23:47] LABS: Eosinophil Urine None Seen % (None Seen); Urine Eos QC 2nd Tech Confirmed
[2023-10-09] MEDS: CLINDAMYCIN 900 MG/D5W 50 ML 900 MG/50 ML PIGGYBACK 50 MG IVPB (02:22)
[2023-10-09] MEDS: SODIUM CHLORIDE 0.9% IV 1,000 ML 75 ML IV CONT ×2 (02:22→20:18)
[2023-10-09 06:00] VITALS: BP 115/58; PULSE 72; RESP 16; TEMP 36.7; O2SAT 97
[2023-10-09 06:38] LABS: Hematocrit 34.3 % (42.0-52.0); Hemoglobin 11.6 g/dL (14.0-18.0); Mean Corpuscular HGB Conc 33.8 g/dl (32-36); Mean Corpuscular Hemoglobin 28.3 pg (26-34); Mean Corpuscular Volume 83.7 fl (80-100); Mean Platelet Volume 10.2 fl (7.4-10.4); Platelet Count Result 237 k/mm3 (150-375); Red Cell Distribution Width 15.3 % (11.5-14.5); White Blood Count 15.7 K/mm3 (4.5-10.0)
[2023-10-09] MEDS: ACETAMINOPHEN 500 MG TABLET 1000 MG PO ×2 (06:38→14:27)
[2023-10-09 06:54] LABS: Alanine Aminotransferase 147 U/L (6-50); Albumin Level 2.8 g/dL (3.5-5.1); Alkaline Phosphatase 238 U/L (38-126); Anion Gap 10 mmol/L (8-16); Aspartate Amino Transferase 91 U/L (17-59); Bilirubin,Total 1.1 mg/dL (0.2-1.3); Blood Urea Nitrogen 66 mg/dL (9-20); Carbon Dioxide 21 mmol/L (22-30); Chloride 104 mmol/L (98-107); Estimated CRCL calculation 23 ml/min; Estimated Glomerular Filt Rate 20; Glucose 119 mg/dL (65-110); Potassium 3.5 mmol/L (3.4-5.0); Sodium 135 mmol/L (137-145)
[2023-10-09 07:20] LABS: Anisocytosis 1+ (NORMAL); Atypical Lymphocytes Present; Band Neutrophils Percent 5 % (0-6); Eosinophils Absolute Manual 0.15 K/mm3 (0.02-0.5); Eosinophils Percent Manual 1 % (0-4); Giant Platelets Present; Large Platelets Present; Lymphocytes Absolute Manual 1.09 K/mm3 (1.1-4.5); Metamyelocytes Percent 2 %; Monocytes Absolute Manual 0.31 K/mm3 (0.1-0.90); Monocytes Percent Manual 2 % (3-9); Neutrophils Absolute Manual 13.81 K/mm3 (1.3-6.7); Neutrophils Percent Manual 83 % (46-73); Platelet Estimate Adequate (Adequate); Schistocytes None Seen (NORMAL); Total Cells Counted 100
[2023-10-09 08:40] LABS: Creatine Kinase 34 U/L (55-170)
[2023-10-09] MEDS: FLUTICASONE PROPIONATE 0.05% NA SPR 16 GM BTL (*BKC) 1 SPRAY NASAL ×2 (09:39→18:00)
[2023-10-09] MEDS: cefTRIAXone 2 GM/NS 100 ML 2 GM/100 ML BAG IVPB (09:39)
--- NOTE | 2023-10-09 10:24 | PM.IMPN ---
Progress Note: A&P Assessment and Plan (1) Bacteremia: Code(s): R78.81 - Bacteremia Status: Acute Assessment and Plan: 2 of 4 bottles show Gram-positive cocci in pairs Continue vancomycin and Rocephin (2) Diarrhea: Code(s): R19.7 - Diarrhea, unspecified Status: Acute (3) Pyelitis: Code(s): N12 - Tubulo-interstitial nephritis, not specified as acute or chronic Status: Acute Assessment and Plan: Urine culture negative (4) MIRA (acute kidney injury): Code(s): N17.9 - Acute kidney failure, unspecified Status: Acute Assessment and Plan: Improving, monitor Nephrology consult ordered and pending Plan DVT prophylaxis with SCDs GI prophylaxis not indicated Code status full code Subjective Date/time seen: 10/09/23 10:24 Interval history: 63 year old male admitted with diarrhea and abdominal pains ct abdomen showed enlarged right kidney with peripheral hypoattenuation. No overnight events noted. No chest pain or shortness of breath. No nausea, vomiting or diarrhea. No fevers or chills. Review of Systems Review of Systems: 12 point review of systems was assessed and was negative except as noted in the HPI Exam Narrative: General: No acute distress, alert and oriented per baseline HEENT: Atraumatic, normocephalic, mucous membranes moist CV: Regular rate and rhythm, S1, S2 Lungs: Clear to auscultation bilaterally, no rales or crackles noted, no wheezes, good air entry Abdomen: Soft, nontender, nondistended Extremities: Normal to inspection Skin: No rashes noted, no lesions or wounds seen Psych: Euthymic, normal affect Objective Data Vital Signs Vital Signs: Vital Signs - 24 hr 10/08/23 14:00 10/08/23 20:00 10/08/23 22:00 Temperature 98.4 F 99.4 F Pulse Rate 80 77 Respiratory Rate 18 14 Blood Pressure 123/55 L 129/63 Pulse Oximetry 98 97 Oxygen Delivery Room Air 10/09/23 06:00 Temperature 98.1 F Pulse Rate 72 Respiratory Rate 16 Blood Pressure 115/58 L Pulse Oximetry 97 Oxygen Delivery Intake/Output Intake/Output: Intake & Output 10/06/23 10/07/23 10/08/23 10/09/23 23:59 23:59 23:59 23:59 Intake Total 2050 628 1200 Balance 2049 628 1200 Meds/Results Medications: Active Medications Generic Name Dose Route Start Last Admin Trade Name Freq PRN Reason Stop Dose Admin Acetaminophen 1,000 mg 10/09/23 05:49 10/09/23 06:38 Acetaminophen 500 Mg Tablet PO 1,000 mg Q6H PRN Administration Mild Pain (1-3) or Fever Fluticasone Propionate 1 spray 10/08/23 09:00 10/09/23 09:39 Fluticasone Propionate 0.05% Na Spr 16 Gm Btl (*Bkc) NASAL 1 spray BID HUGH Administration Sodium Chloride 1,000 mls @ 75 mls/hr 10/07/23 23:20 10/09/23 02:22 Normal Saline Iv IV CONT 75 mls/hr .[id number] HUGH Administration Clindamycin Phosphate 900 mg in 50 mls @ 50 mls/hr 10/08/23 02:00 10/09/23 02:22 Cleocin 900 Mg/D5w 50 Ml IVPB 50 mls/hr Q8H HUGH Administration Ceftriaxone Sodium 2 gm in 100 mls @ 200 mls/hr 10/09/23 08:30 10/09/23 09:39 Rocephin 2 Gm/Ns 100 Ml IVPB 200 mls/hr DAILY HUGH Administration Vancomycin HCl 1,250 mg in 250 mls @ 166.667 mls/hr 10/09/23 09:00 Vancomycin 1,250 Mg/Ns 250 Ml IVPB Q36H HUGH Loratadine 10 mg 10/08/23 01:29 Loratadine 10 Mg Tablet PO DAILY PRN allergy symptoms Radiology Results: ITS Impressions Chest X-Ray 10/07/23 13:46 Impression: Normal chest. Chest/Abdomen/Pelvis CT 10/07/23 15:31 IMPRESSION: 1. Enlarged right kidney with peripheral hypoattenuation. The differential diagnosis includes pyelonephritis and subacute subcapsular hematoma. Consider abdomen MRI without and with contrast. 2. Small pericardial effusion. Abdomen Ultrasound 10/07/23 17:16 IMPRESSION: Contracted gallbladder which limits evaluation. No pericholecystic fluid or stones. Other
[2023-10-09] MEDS: VANCOMYCIN 1,250 MG/NS 250 ML 1,250 MG/250 ML BAG 166.67 MG IVPB (10:42)
--- NOTE | 2023-10-09 11:50 | PM.PNNEP ---
Progress Note: A&P Assessment and Plan (1) MIRA (acute kidney injury): Code(s): N17.9 - Acute kidney failure, unspecified Status: Acute Assessment and Plan: slow improvement noted normal baseline creatinine earlier this year presumably secondary to poor oral intake/GI losses and infection evaluation to date: urine eosinophils negative urine electrolytes prerenal CT with enlarged right kidney with peripheral hypoattenuation. The differential diagnosis includes pyelonephritis and subacute subcapsular hematoma. renal ultrasound with nonspecific minimal right perinephric fluid possible protracted ATN from infection (see #2) agree with gentle IVF hydration follow repeat labs and UOP (2) Bacteremia: Code(s): R78.81 - Bacteremia Status: Acute Assessment and Plan: positive blood culture noted on antibiotics follow organism identification repeat culture pending (3) Abdominal pain: Code(s): R10.9 - Unspecified abdominal pain Status: Acute Assessment and Plan: related to #3 and #4 (?) CT imaging and abdominal ultrasound noted continue supportive therapy (4) Diarrhea: Code(s): R19.7 - Diarrhea, unspecified Status: Acute Assessment and Plan: unclear etiology seems to be resolving so stool studies and C. diff toxin assay not ordered IVF hydration follow symptoms (5) Pyelitis: Code(s): N12 - Tubulo-interstitial nephritis, not specified as acute or chronic Status: Acute Assessment and Plan: as suggested by admission CT scan follow culture data on antibiotics consider repeat imaging (MRI) once infection/bacteremia clears Will continue to follow. Subjective Date/time seen: 10/09/23 11:50 Interval history: Follow-up for acute kidney injury/acute renal failure. Reports not really feeling much better (but no worse either); still complaining of headaches and fatigue which seem about the same as well; no other issues/events overnight or earlier this morining; no acute distress voiced. Exam Narrative: General: WD/WN male in NAD Heart: normal S1 and S2; no rub Lungs: clear to auscultation Abdomen: soft, nontender, nondistended, positive bowel sounds Extremities: no cyanosis or clubbing; no edema Skin: warm and dry Objective Data Vital Signs Vital Signs: Vital Signs Temp Pulse Resp BP Pulse Ox O2 Del Method 10/09/23 11:00 98.1 F 73 18 125/63 99 10/09/23 09:40 Room Air 10/09/23 06:00 98.1 F 72 16 115/58 L 97 10/08/23 22:00 99.4 F 77 14 129/63 97 10/08/23 20:00 Room Air Intake/Output Intake/Output: Intake & Output 10/06/23 10/07/23 10/08/23 10/09/23 23:59 23:59 23:59 23:59 Intake Total 2049 628 1554 Balance 2049 628 1554 Meds/Results Medications: Active Medications Generic Name Dose Route Start Last Admin Trade Name Freq PRN Reason Stop Dose Admin Acetaminophen 1,000 mg 10/09/23 05:49 10/09/23 14:27 Acetaminophen 500 Mg Tablet PO 1,000 mg Q6H PRN Administration Mild Pain (1-3) or Fever Fluticasone Propionate 1 spray 10/08/23 09:00 10/09/23 09:39 Fluticasone Propionate 0.05% Na Spr 16 Gm Btl (*Bkc) NASAL 1 spray BID HUGH Administration Sodium Chloride 1,000 mls @ 75 mls/hr 10/07/23 23:20 10/09/23 02:22 Normal Saline Iv IV CONT 75 mls/hr .[id number] HUGH Administration Ceftriaxone Sodium 2 gm in 100 mls @ 200 mls/hr 10/09/23 08:30 10/09/23 09:39 Rocephin 2 Gm/Ns 100 Ml IVPB 200 mls/hr DAILY HUGH Administration Vancomycin HCl 1,250 mg in 250 mls @ 166.667 mls/hr 10/09/23 09:00 10/09/23 10:42 Vancomycin 1,250 Mg/Ns 250 Ml IVPB 166.67 mls/hr Q36H HUGH Administration Loratadine 10 mg 10/08/23 01:29 Loratadine 10 Mg Tablet PO DAILY PRN allergy symptoms Radiology Results: ITS Impressions Chest X-Ray 10/07/23 13:46 Impression: Norm
--- NOTE | 2023-10-09 11:50 | P.PNNP_ITS ---
Progress Note: A&P Assessment and Plan (1) MIRA (acute kidney injury): Code(s): N17.9 - Acute kidney failure, unspecified Status: Acute Assessment and Plan: * slow improvement noted * normal baseline creatinine earlier this year * presumably secondary to poor oral intake/GI losses and infection * evaluation to date: * urine eosinophils negative * urine electrolytes prerenal * CT with enlarged right kidney with peripheral hypoattenuation. The differential diagnosis includes pyelonephritis and subacute subcapsular hematoma. * renal ultrasound with nonspecific minimal right perinephric fluid * possible protracted ATN from infection (see #2) * agree with gentle IVF hydration * follow repeat labs and UOP (2) Bacteremia: Code(s): R78.81 - Bacteremia Status: Acute Assessment and Plan: * positive blood culture noted * on antibiotics * follow organism identification * repeat culture pending (3) Abdominal pain: Code(s): R10.9 - Unspecified abdominal pain Status: Acute Assessment and Plan: * related to #3 and #4 (?) * CT imaging and abdominal ultrasound noted * continue supportive therapy (4) Diarrhea: Code(s): R19.7 - Diarrhea, unspecified Status: Acute Assessment and Plan: * unclear etiology * seems to be resolving so stool studies and C. diff toxin assay not ordered * IVF hydration * follow symptoms (5) Pyelitis: Code(s): N12 - Tubulo-interstitial nephritis, not specified as acute or chronic Status: Acute Assessment and Plan: * as suggested by admission CT scan * follow culture data * on antibiotics * consider repeat imaging (MRI) once infection/bacteremia clears Will continue to follow. Subjective Date/time seen: 10/09/23 11:50 Interval history: Follow-up for acute kidney injury/acute renal failure. Reports not really feeling much better (but no worse either); still complaining of headaches and fatigue which seem about the same as well; no other issues/events overnight or earlier this morining; no acute distress voiced. Exam Narrative: General: WD/WN male in NAD Heart: normal S1 and S2; no rub Lungs: clear to auscultation Abdomen: soft, nontender, nondistended, positive bowel sounds Extremities: no cyanosis or clubbing; no edema Skin: warm and dry Objective Data Vital Signs Vital Signs: Vital Signs Temp Pulse Resp BP Pulse Ox O2 Del Method 10/09/23 11:00 98.1 F 73 18 125/63 99 10/09/23 09:40 Room Air 10/09/23 06:00 98.1 F 72 16 115/58 L 97 10/08/23 22:00 99.4 F 77 14 129/63 97 10/08/23 20:00 Room Air Intake/Output Intake/Output: Intake & Output 10/06/23 10/07/23 10/08/23 10/09/23 23:59 23:59 23:59 23:59 Intake Total 2049 628 1554 Balance 2049 628 1554 Meds/Results Medications: Active Medications Generic Name Dose Route Start Last Admin Trade Name Freq PRN Reason Stop Dose Admin Acetaminophen 1,000 mg 10/09/23 05:49 10/09/23 14:27 Acetaminophen 500 Mg Tablet PO 1,000 mg Q6H PRN Administration Mild Pain (1-3) or Fever Fluticasone Propionate
[2023-10-09 14:00] VITALS: BP 125/63; PULSE 73; RESP 18; TEMP 36.7; O2SAT 99
[2023-10-09 21:30] VITALS: BP 123/58; PULSE 72; RESP 19; TEMP 37.4; O2SAT 98
[2023-10-10 06:00] VITALS: BP 131/70; PULSE 69; RESP 19; TEMP 36.9; O2SAT 97
[2023-10-10 07:34] LABS: Hematocrit 35.3 % (42.0-52.0); Mean Corpuscular Hemoglobin 28.4 pg (26-34); Mean Corpuscular Volume 83.5 fl (80-100); Mean Platelet Volume 9.8 fl (7.4-10.4); Platelet Count Result 341 k/mm3 (150-375); Red Blood Count 4.23 M/mm3 (4.6-6.20); Red Cell Distribution Width 15.9 % (11.5-14.5)
[2023-10-10 07:48] LABS: Alanine Aminotransferase 101 U/L (6-50); Albumin Level 2.9 g/dL (3.5-5.1); Alkaline Phosphatase 222 U/L (38-126); Anion Gap 11 mmol/L (8-16); Aspartate Amino Transferase 45 U/L (17-59); Bilirubin,Total 0.9 mg/dL (0.2-1.3); Blood Urea Nitrogen 59 mg/dL (9-20); Carbon Dioxide 21 mmol/L (22-30); Chloride 106 mmol/L (98-107); Estimated CRCL calculation 22 ml/min; Estimated Glomerular Filt Rate 20; Glucose 107 mg/dL (65-110); Potassium 3.5 mmol/L (3.4-5.0); Sodium 138 mmol/L (137-145)
[2023-10-10 08:04] LABS: Band Neutrophils Percent 19 % (0-6); Lymphocytes Absolute Manual 1.08 K/mm3 (1.1-4.5); Monocytes Absolute Manual 0.54 K/mm3 (0.1-0.90); Monocytes Percent Manual 3 % (3-9); Neutrophils Absolute Manual 16.38 K/mm3 (1.3-6.7); Neutrophils Percent Manual 72 % (46-73); Platelet Estimate Adequate (Adequate); Schistocytes None Seen (NORMAL); Total Cells Counted 100
[2023-10-10] MEDS: cefTRIAXone 2 GM/NS 100 ML 2 GM/100 ML BAG IVPB (08:55)
[2023-10-10] MEDS: FLUTICASONE PROPIONATE 0.05% NA SPR 16 GM BTL (*BKC) 1 SPRAY NASAL ×2 (08:55→18:57)
--- NOTE | 2023-10-10 12:15 | PM.IMPN ---
Progress Note: A&P Assessment and Plan (1) Bacteremia: Code(s): R78.81 - Bacteremia Status: Acute Assessment and Plan: 2 of 4 bottles show Gram-positive cocci in pairs Continue vancomycin and Rocephin 10/10: enterococcus faecalis noted, switch abx to linezold monotherapy, await sens (2) Diarrhea: Code(s): R19.7 - Diarrhea, unspecified Status: Acute (3) Pyelitis: Code(s): N12 - Tubulo-interstitial nephritis, not specified as acute or chronic Status: Acute Assessment and Plan: Urine culture negative (4) MIRA (acute kidney injury): Code(s): N17.9 - Acute kidney failure, unspecified Status: Acute Assessment and Plan: Improving, monitor Nephrology consult ordered and pending Plan DVT prophylaxis with SCDs GI prophylaxis not indicated Code status full code Subjective Date/time seen: 10/10/23 12:15 Interval history: 63 year old male admitted with diarrhea and abdominal pains ct abdomen showed enlarged right kidney with peripheral hypoattenuation. No overnight events noted. No chest pain or shortness of breath. No nausea, vomiting or diarrhea. No fevers or chills. Review of Systems Review of Systems: 12 point review of systems was assessed and was negative except as noted in the HPI Exam Narrative: General: No acute distress, alert and oriented per baseline HEENT: Atraumatic, normocephalic, mucous membranes moist CV: Regular rate and rhythm, S1, S2 Lungs: Clear to auscultation bilaterally, no rales or crackles noted, no wheezes, good air entry Abdomen: Soft, nontender, nondistended Extremities: Normal to inspection Skin: No rashes noted, no lesions or wounds seen Psych: Euthymic, normal affect Objective Data Vital Signs Vital Signs: Vital Signs - 24 hr 10/09/23 14:00 10/09/23 20:00 10/09/23 21:30 Temperature 98.1 F 99.3 F Pulse Rate 73 72 Respiratory Rate 18 19 Blood Pressure 125/63 123/58 L Pulse Oximetry 99 98 Oxygen Delivery Room Air 10/10/23 06:00 Temperature 98.5 F Pulse Rate 69 Respiratory Rate 19 Blood Pressure 131/70 Pulse Oximetry 97 Oxygen Delivery Intake/Output Intake/Output: Intake & Output 10/07/23 10/08/23 10/09/23 10/10/23 23:59 23:59 23:59 23:59 Intake Total 2049 628 3140 525 Balance 2049 628 3140 525 Meds/Results Medications: Active Medications Generic Name Dose Route Start Last Admin Trade Name Freq PRN Reason Stop Dose Admin Acetaminophen 1,000 mg 10/09/23 05:49 10/09/23 14:27 Acetaminophen 500 Mg Tablet PO 1,000 mg Q6H PRN Administration Mild Pain (1-3) or Fever Fluticasone Propionate 1 spray 10/08/23 09:00 10/10/23 08:55 Fluticasone Propionate 0.05% Na Spr 16 Gm Btl (*Bkc) NASAL 1 spray BID HUGH Administration Sodium Chloride 1,000 mls @ 75 mls/hr 10/07/23 23:20 10/09/23 20:18 Normal Saline Iv IV CONT 75 mls/hr .[id number] HUGH Administration Ceftriaxone Sodium 2 gm in 100 mls @ 200 mls/hr 10/09/23 08:30 10/10/23 09:25 Rocephin 2 Gm/Ns 100 Ml IVPB Infused DAILY HUGH Infusion Vancomycin HCl 1,250 mg in 250 mls @ 166.667 mls/hr 10/09/23 09:00 10/09/23 12:15 Vancomycin 1,250 Mg/Ns 250 Ml IVPB Infused Q36H HUGH Infusion Loratadine 10 mg 10/08/23 01:29 Loratadine 10 Mg Tablet PO DAILY PRN allergy symptoms Radiology Results: ITS Impressions Chest X-Ray 10/07/23 13:46 Impression: Normal chest. Chest/Abdomen/Pelvis CT 10/07/23 15:31 IMPRESSION: 1. Enlarged right kidney with peripheral hypoattenuation. The differential diagnosis includes pyelonephritis and subacute subcapsular hematoma. Consider abdomen MRI without and with contrast. 2. Small pericardial effusion. Abdomen Ultrasound 10/07/23 17:16 IMPRESSION: Contracted gallbladder which limits evaluation. No pericholecystic fluid or stones. Otherwise normal limited abdominal ultrasound findin
--- NOTE | 2023-10-10 13:01 | PM.PNNEP ---
Progress Note: A&P Assessment and Plan (1) MIRA (acute kidney injury): Code(s): N17.9 - Acute kidney failure, unspecified Status: Acute Assessment and Plan: slow improvement noted normal baseline creatinine earlier this year presumably secondary to poor oral intake/GI losses and infection evaluation to date: urine eosinophils negative urine electrolytes prerenal CT with enlarged right kidney with peripheral hypoattenuation. The differential diagnosis includes pyelonephritis and subacute subcapsular hematoma. renal ultrasound with nonspecific minimal right perinephric fluid possible protracted ATN from infection (see #2) agree with gentle IVF hydration follow repeat labs and UOP (2) Bacteremia: Code(s): R78.81 - Bacteremia Status: Acute Assessment and Plan: positive blood culture noted on antibiotics culture with Enteroccoccus -- source?? repeat culture pending (3) Abdominal pain: Code(s): R10.9 - Unspecified abdominal pain Status: Acute Assessment and Plan: related to #3 and #4 (?) CT imaging and abdominal ultrasound noted continue supportive therapy (4) Diarrhea: Code(s): R19.7 - Diarrhea, unspecified Status: Acute Assessment and Plan: unclear etiology seems to be resolving so stool studies and C. diff toxin assay not ordered IVF hydration follow symptoms (5) Pyelitis: Code(s): N12 - Tubulo-interstitial nephritis, not specified as acute or chronic Status: Acute Assessment and Plan: as suggested by admission CT scan follow culture data on antibiotics consider repeat imaging (MRI) once infection/bacteremia clears Will continue to follow. Subjective Date/time seen: 10/10/23 13:01 Interval history: Follow-up for acute kidney injury/acute renal failure. Renal function appears about the same (no worse but not really any better) but with no critical electrolytes and appears to be making reasonably urine output with IVFs; overall, feels a bit better at the time of my visit; no issues/events overnight or earlier this morning. Exam Narrative: General: WD/WN male in NAD Heart: normal S1 and S2; no rub Lungs: clear to auscultation Abdomen: soft, nontender, nondistended, positive bowel sounds Extremities: no cyanosis or clubbing; no edema Skin: warm and intact Objective Data Vital Signs Vital Signs: Vital Signs Temp Pulse Resp BP Pulse Ox O2 Del Method 10/10/23 12:00 98.4 F 70 18 126/61 99 10/10/23 06:00 98.5 F 69 19 131/70 97 10/09/23 21:30 99.3 F 72 19 123/58 L 98 10/09/23 20:00 Room Air Intake/Output Intake/Output: Intake & Output 10/07/23 10/08/23 10/09/23 10/10/23 23:59 23:59 23:59 23:59 Intake Total 2049 628 3140 1925 Balance 2049 628 3140 1925 Meds/Results Medications: Active Medications Generic Name Dose Route Start Last Admin Trade Name Freq PRN Reason Stop Dose Admin Acetaminophen 1,000 mg 10/09/23 05:49 10/09/23 14:27 Acetaminophen 500 Mg Tablet PO 1,000 mg Q6H PRN Administration Mild Pain (1-3) or Fever Fluticasone Propionate 1 spray 10/08/23 09:00 10/10/23 08:55 Fluticasone Propionate 0.05% Na Spr 16 Gm Btl (*Bkc) NASAL 1 spray BID HUGH Administration Sodium Chloride 1,000 mls @ 75 mls/hr 10/07/23 23:20 10/10/23 13:36 Normal Saline Iv IV CONT 75 mls/hr .[id number] HUGH Administration Linezolid 600 mg 10/10/23 12:20 10/10/23 13:32 Linezolid 600 Mg Tablet PO 600 mg Q12HR HUGH Administration Loratadine 10 mg 10/08/23 01:29 Loratadine 10 Mg Tablet PO DAILY PRN allergy symptoms Radiology Results: ITS Impressions Chest X-Ray 10/07/23 13:46 Impression: Normal chest. Chest/Abdomen/Pelvis CT 10/07/23 15:31 IMPRESSION: 1. Enlarged right kidney with peripheral hypoattenuation. The differential diagnosis includes olena
--- NOTE | 2023-10-10 13:01 | P.PNNP_ITS ---
Progress Note: A&P Assessment and Plan (1) MIRA (acute kidney injury): Code(s): N17.9 - Acute kidney failure, unspecified Status: Acute Assessment and Plan: * slow improvement noted * normal baseline creatinine earlier this year * presumably secondary to poor oral intake/GI losses and infection * evaluation to date: * urine eosinophils negative * urine electrolytes prerenal * CT with enlarged right kidney with peripheral hypoattenuation. The differential diagnosis includes pyelonephritis and subacute subcapsular hematoma. * renal ultrasound with nonspecific minimal right perinephric fluid * possible protracted ATN from infection (see #2) * agree with gentle IVF hydration * follow repeat labs and UOP (2) Bacteremia: Code(s): R78.81 - Bacteremia Status: Acute Assessment and Plan: * positive blood culture noted * on antibiotics * culture with Enteroccoccus -- source?? * repeat culture pending (3) Abdominal pain: Code(s): R10.9 - Unspecified abdominal pain Status: Acute Assessment and Plan: * related to #3 and #4 (?) * CT imaging and abdominal ultrasound noted * continue supportive therapy (4) Diarrhea: Code(s): R19.7 - Diarrhea, unspecified Status: Acute Assessment and Plan: * unclear etiology * seems to be resolving so stool studies and C. diff toxin assay not ordered * IVF hydration * follow symptoms (5) Pyelitis: Code(s): N12 - Tubulo-interstitial nephritis, not specified as acute or chronic Status: Acute Assessment and Plan: * as suggested by admission CT scan * follow culture data * on antibiotics * consider repeat imaging (MRI) once infection/bacteremia clears Will continue to follow. Subjective Date/time seen: 10/10/23 13:01 Interval history: Follow-up for acute kidney injury/acute renal failure. Renal function appears about the same (no worse but not really any better) but with no critical electrolytes and appears to be making reasonably urine output with IVFs; overall, feels a bit better at the time of my visit; no issues/events overnight or earlier this morning. Exam Narrative: General: WD/WN male in NAD Heart: normal S1 and S2; no rub Lungs: clear to auscultation Abdomen: soft, nontender, nondistended, positive bowel sounds Extremities: no cyanosis or clubbing; no edema Skin: warm and intact Objective Data Vital Signs Vital Signs: Vital Signs Temp Pulse Resp BP Pulse Ox O2 Del Method 10/10/23 12:00 98.4 F 70 18 126/61 99 10/10/23 06:00 98.5 F 69 19 131/70 97 10/09/23 21:30 99.3 F 72 19 123/58 L 98 10/09/23 20:00 Room Air Intake/Output Intake/Output: Intake & Output 10/07/23 10/08/23 10/09/23 10/10/23 23:59 23:59 23:59 23:59 Intake Total 2049 628 3140 1925 Balance 2049 628 3140 1925 Meds/Results Medications: Active Medications Generic Name Dose Route Start Last Admin Trade Name Freq PRN Reason Stop Dose Admin Acetaminophen 1,000 mg 10/09/23 05:49 10/09/23 14:27 Acetaminophen 500 Mg Tablet PO 1,000 mg Q6H PRN Administration Mild Pain (1-3) or Fever
[2023-10-10] MEDS: LINEZOLID 600 MG TABLET PO ×2 (13:32→20:35)
[2023-10-10] MEDS: SODIUM CHLORIDE 0.9% IV 1,000 ML 75 ML IV CONT (13:36)
[2023-10-10 14:00] VITALS: BP 126/61; PULSE 70; RESP 18; TEMP 36.9; O2SAT 99
[2023-10-10 22:00] VITALS: BP 145/67; PULSE 69; RESP 18; TEMP 36.8; O2SAT 98
[2023-10-11 04:45] VITALS: BP 131/53; PULSE 57; RESP 18; TEMP 37.1; O2SAT 98
[2023-10-11] MEDS: SODIUM CHLORIDE 0.9% IV 1,000 ML 75 ML IV CONT (04:56)
[2023-10-11 07:23] LABS: Hematocrit 33.6 % (42.0-52.0); Hemoglobin 11.1 g/dL (14.0-18.0); Mean Corpuscular Hemoglobin 28.2 pg (26-34); Mean Corpuscular Volume 85.3 fl (80-100); Mean Platelet Volume 9.6 fl (7.4-10.4); Platelet Count Result 379 k/mm3 (150-375); Red Blood Count 3.94 M/mm3 (4.6-6.20); Red Cell Distribution Width 16.3 % (11.5-14.5); White Blood Count 16.4 K/mm3 (4.5-10.0)
[2023-10-11 07:32] LABS: Alanine Aminotransferase 79 U/L (6-50); Albumin Level 2.6 g/dL (3.5-5.1); Alkaline Phosphatase 199 U/L (38-126); Anion Gap 9 mmol/L (8-16); Aspartate Amino Transferase 43 U/L (17-59); Bilirubin,Total 0.8 mg/dL (0.2-1.3); Blood Urea Nitrogen 53 mg/dL (9-20); Calcium 7.8 mg/dL (8.4-10.2); Carbon Dioxide 20 mmol/L (22-30); Chloride 109 mmol/L (98-107); Estimated CRCL calculation 26 ml/min; Estimated Glomerular Filt Rate 24; Glucose 107 mg/dL (65-110); Potassium 3.3 mmol/L (3.4-5.0); Sodium 138 mmol/L (137-145)
[2023-10-11 08:06] LABS: Band Neutrophils Percent 12 % (0-6); Eosinophils Absolute Manual 0.16 K/mm3 (0.02-0.5); Eosinophils Percent Manual 1 % (0-4); Lymphocytes Absolute Manual 0.49 K/mm3 (1.1-4.5); Metamyelocytes Percent 1 %; Monocytes Absolute Manual 0.82 K/mm3 (0.1-0.90); Monocytes Percent Manual 5 % (3-9); Neutrophils Absolute Manual 14.76 K/mm3 (1.3-6.7); Neutrophils Percent Manual 78 % (46-73); Platelet Estimate Adequate (Adequate); Schistocytes None Seen (NORMAL); Total Cells Counted 100
[2023-10-11 08:10] LABS: Anisocytosis 1+ (NORMAL)
[2023-10-11] MEDS: FLUTICASONE PROPIONATE 0.05% NA SPR 16 GM BTL (*BKC) 1 SPRAY NASAL ×2 (09:14→17:16)
[2023-10-11] MEDS: LINEZOLID 600 MG TABLET PO ×2 (09:14→20:09)
--- NOTE | 2023-10-11 11:09 | PM.PNNEP ---
Progress Note: A&P Assessment and Plan (1) MIRA (acute kidney injury): Code(s): N17.9 - Acute kidney failure, unspecified Status: Acute Assessment and Plan: slow improvement noted normal baseline creatinine earlier this year presumably secondary to poor oral intake/GI losses and infection/bacteremia possible protracted ATN from infection issues (see #2) evaluation to date: urine eosinophils negative urine electrolytes prerenal CT with enlarged right kidney with peripheral hypoattenuation. The differential diagnosis includes pyelonephritis and subacute subcapsular hematoma. renal ultrasound with nonspecific minimal right perinephric fluid agree with gentle IVF hydration follow repeat labs and UOP (2) Bacteremia: Code(s): R78.81 - Bacteremia Status: Acute Assessment and Plan: positive blood culture noted on antibiotics culture with Enteroccoccus -- source?? repeat culture negative to date (3) Abdominal pain: Code(s): R10.9 - Unspecified abdominal pain Status: Acute Assessment and Plan: related to #3 and #4 (?) CT imaging and abdominal ultrasound noted continue supportive therapy (4) Diarrhea: Code(s): R19.7 - Diarrhea, unspecified Status: Acute Assessment and Plan: unclear etiology seems to be resolving so stool studies and C. diff toxin assay not ordered IVF hydration follow symptoms (5) Pyelitis: Code(s): N12 - Tubulo-interstitial nephritis, not specified as acute or chronic Status: Acute Assessment and Plan: as suggested by admission CT scan follow culture data -- urine culture negative on antibiotics consider repeat imaging (MRI) once infection/bacteremia clears Will continue to follow. Subjective Date/time seen: 10/11/23 11:09 Interval history: Follow-up for acute kidney injury/acute renal failure. Improvement in renal function noted by AM labs; antibiotics have been adjusted based on blood culture results with repeat blood culture negative to date; remains hemodynamically stable and in no acute distress; no events reported overnight. Exam Narrative: General: WD/WN male in NAD Heart: normal S1 and S2; no rub Lungs: clear to auscultation Abdomen: soft, nontender, nondistended, positive bowel sounds Extremities: no cyanosis or clubbing; no edema Skin: no rash or nodules Objective Data Vital Signs Vital Signs: Vital Signs Temp Pulse Resp BP Pulse Ox O2 Del Method 10/11/23 04:45 98.8 F 57 L 18 131/53 L 98 12/02/23 20:00 Room Air 10/10/23 22:00 98.3 F 69 18 145/67 H 98 Intake/Output Intake/Output: Intake & Output 10/08/23 10/09/23 10/10/23 10/11/23 23:59 23:59 23:59 23:59 Intake Total 628 3140 2525 1692 Balance 628 3140 2520 1692 Meds/Results Medications: Active Medications Generic Name Dose Route Start Last Admin Trade Name Freq PRN Reason Stop Dose Admin Acetaminophen 1,000 mg 10/09/23 05:49 10/09/23 14:27 Acetaminophen 500 Mg Tablet PO 1,000 mg Q6H PRN Administration Mild Pain (1-3) or Fever Fluticasone Propionate 1 spray 10/08/23 09:00 12 09:14 Fluticasone Propionate 0.05% Na Spr 16 Gm Btl (*Bkc) NASAL 1 spray BID HUGH Administration Sodium Chloride 1,000 mls @ 75 mls/hr 10/07/23 23:20 10/11/23 04:56 Normal Saline Iv IV CONT 75 mls/hr .[id number] HUGH Administration Linezolid 600 mg 10/10/23 12:20 10/11/23 09:14 Linezolid 600 Mg Tablet PO 600 mg Q12HR HUGH Administration Loratadine 10 mg 10/08/23 01:29 Loratadine 10 Mg Tablet PO DAILY PRN allergy symptoms Radiology Results: ITS Impressions Chest X-Ray 10/07/23 13:46 Impression: Normal chest. Chest/Abdomen/Pelvis CT 10/07/23 15:31 IMPRESSION: 1. Enlarged right kidney with peripheral hypoattenuation. The differential diagnosis includes pyelonephritis and subac
--- NOTE | 2023-10-11 11:09 | P.PNNP_ITS ---
Progress Note: A&P Assessment and Plan (1) MIRA (acute kidney injury): Code(s): N17.9 - Acute kidney failure, unspecified Status: Acute Assessment and Plan: * slow improvement noted * normal baseline creatinine earlier this year * presumably secondary to poor oral intake/GI losses and infection/bacteremia * possible protracted ATN from infection issues (see #2) * evaluation to date: * urine eosinophils negative * urine electrolytes prerenal * CT with enlarged right kidney with peripheral hypoattenuation. The differential diagnosis includes pyelonephritis and subacute subcapsular hematoma. * renal ultrasound with nonspecific minimal right perinephric fluid * agree with gentle IVF hydration * follow repeat labs and UOP (2) Bacteremia: Code(s): R78.81 - Bacteremia Status: Acute Assessment and Plan: * positive blood culture noted * on antibiotics * culture with Enteroccoccus -- source?? * repeat culture negative to date (3) Abdominal pain: Code(s): R10.9 - Unspecified abdominal pain Status: Acute Assessment and Plan: * related to #3 and #4 (?) * CT imaging and abdominal ultrasound noted * continue supportive therapy (4) Diarrhea: Code(s): R19.7 - Diarrhea, unspecified Status: Acute Assessment and Plan: * unclear etiology * seems to be resolving so stool studies and C. diff toxin assay not ordered * IVF hydration * follow symptoms (5) Pyelitis: Code(s): N12 - Tubulo-interstitial nephritis, not specified as acute or chronic Status: Acute Assessment and Plan: * as suggested by admission CT scan * follow culture data -- urine culture negative * on antibiotics * consider repeat imaging (MRI) once infection/bacteremia clears Will continue to follow. Subjective Date/time seen: 10/11/23 11:09 Interval history: Follow-up for acute kidney injury/acute renal failure. Improvement in renal function noted by AM labs; antibiotics have been adjusted based on blood culture results with repeat blood culture negative to date; remains hemodynamically stable and in no acute distress; no events reported overnight. Exam Narrative: General: WD/WN male in NAD Heart: normal S1 and S2; no rub Lungs: clear to auscultation Abdomen: soft, nontender, nondistended, positive bowel sounds Extremities: no cyanosis or clubbing; no edema Skin: no rash or nodules Objective Data Vital Signs Vital Signs: Vital Signs Temp Pulse Resp BP Pulse Ox O2 Del Method 10/11/23 04:45 98.8 F 57 L 18 131/53 L 98 10/10/23 20:00 Room Air 10/10/23 22:00 98.3 F 69 18 145/67 H 98 Intake/Output Intake/Output: Intake & Output 10/08/23 10/09/23 10/10/23 10/11/23 23:59 23:59 23:59 23:59 Intake Total 475 3939 6457 1696 Balance 628 4331 9835 169 Meds/Results Medications: Active Medications Generic Name Dose Route Start Last Admin Trade Name Freq PRN Reason Stop Dose Admin Acetaminophen 1,000 mg 10/09/23 05:49 10/09/23 14:27 Acetaminophen 500 Mg Tablet PO 1,000 mg Q6H PRN Administration Mild Pain (1-3) or Fever Fluticasone Propionate
--- NOTE | 2023-10-11 11:40 | PM.DS ---
DS: Admitting Diagnosis Discharge Date 10/11/23 Admitting Diagnosis NVD DS: Discharge Diagnosis Discharge Diagnosis (1) Bacteremia: Code(s): R78.81 - Bacteremia Status: Acute Assessment and Plan: 2 of 4 bottles show Gram-positive cocci in pairs Continue vancomycin and Rocephin 10/10: enterococcus faecalis noted, switch abx to linezold monotherapy, await sens (2) Diarrhea: Code(s): R19.7 - Diarrhea, unspecified Status: Acute (3) Pyelitis: Code(s): N12 - Tubulo-interstitial nephritis, not specified as acute or chronic Status: Acute Assessment and Plan: Urine culture negative (4) MIRA (acute kidney injury): Code(s): N17.9 - Acute kidney failure, unspecified Status: Acute Assessment and Plan: Improving, monitor Nephrology consult ordered and pending Plan DVT prophylaxis with SCDs GI prophylaxis not indicated Code status full code DS: Summary Hospital Course Hospital Course: 63 year old male admitted with diarrhea and abdominal pains ct abdomen showed enlarged right kidney with peripheral hypoattenuation and found to have Enterococcus bacteremia of unknown source, repeat blood cultures negative x 24hrs. All symptoms resolved on vancomycin. Patient was transitioned to oral linezolid due to an allergy to penicillin to complete a 7 day course of antibiotics. Patient was discharged in stable condition with close outpatient follow-up. Please see above and med rec for details. Time Spent with Patient Time attestation: Total time spent providing and/or coordinating discharge services: Exam Narrative: General: No acute distress, alert and oriented per baseline HEENT: Atraumatic, normocephalic, mucous membranes moist CV: Regular rate and rhythm, S1, S2 Lungs: Clear to auscultation bilaterally, no rales or crackles noted, no wheezes, good air entry Abdomen: Soft, nontender, nondistended Extremities: Normal to inspection Skin: No rashes noted, no lesions or wounds seen Psych: Euthymic, normal affect DS: Data Data Completed and Pending Labs on day of discharge: Labs from last 24 hours 10/11/23 06:57 WBC 16.4 H RBC 3.94 L Hgb 11.1 L Hct 33.6 L MCV 85.3 MCH 28.2 MCHC 33.0 RDW 16.3 H Plt Count 379 H MPV 9.6 Immature Gran % (Auto) Not Reportable Neut % (Auto) Not Reportable Lymph % (Auto) Not Reportable [place] % (Auto) Not Reportable Eos % (Auto) Not Reportable Baso % (Auto) Not Reportable Lymph # (Auto) Not Reportable [place] # (Auto) Not Reportable Eos # (Auto) Not Reportable Baso # (Auto) Not Reportable Abs Immat Gran (auto) Not Reportable Absolute Neuts (auto) Not Reportable Absolute Nucleated RBC Not Reportable Total Counted 100 Neutrophils % (Manual) 78 H Band Neutrophils % 12 H Lymphocytes % (Manual) 3.0 L Monocytes % (Manual) 5 Eosinophils % (Manual) 1 Metamyelocytes % 1 Nucleated RBC % Not Reportable Abs Neuts (Manual) 14.76 H Abs Lymphs (Manual) 0.49 L Abs Monocytes (Manual) 0.82 Absolute Eos (Manual) 0.16 Platelet Estimate Adequate Anisocytosis 1+ Schistocytes None seen Sodium 138 Potassium 3.3 L Chloride 109 H Carbon Dioxide 20 L Anion Gap 9 BUN 53 H Creatinine 2.70 H Estim Creat Clear Calc 26 Estimated GFR 24 L Glucose 107 Calcium 7.8 L Total Bilirubin 0.8 AST 43 ALT 79 H Alkaline Phosphatase 199 H Total Protein 6.0 L Albumin 2.6 L Preliminary micro results at discharge 10/10/23 07:04 Blood Culture - Preliminary Blood 10/10/23 06:57 Blood Culture - Preliminary Blood 10/07/23 15:56 Blood Culture - Preliminary Blood Discharge Plan Discharge Attending physician on discharge: Silvia Devine Consulting providers: Hussain Sena Discharging Clinician: Silvia Devine Patient Disposition: Home, Self-Care Activity: as tolerated Diet: as tolerated Patient Instructions: Antibiotic Form
[2023-10-11] MEDS: POTASSIUM CHLORIDE 20 MEQ ER TABLET 40 MEQ PO (13:39)
[2023-10-11] MEDS: diphenhydrAMINE HCl INJ 50 MG/ML VIAL 25 MG IV PUSH ×2 (13:39→20:09)
[2023-10-11 14:00] VITALS: BP 145/73; PULSE 74; RESP 16; TEMP 35.9; O2SAT 96
[2023-10-11] MEDS: AMPICILLIN 1 GM/NS 50 ML 1 GM/50 ML BAG IVPB ×2 (14:33→22:19)
[2023-10-11 16:22] VITALS: TEMP 36.7
--- NOTE | 2023-10-11 16:23 | PC.NURSE ---
Patient showed temporal (forehead) temperature reading of 96.7. [employer] rechecked oral temperature, 98.0.
[2023-10-11 21:25] VITALS: BP 150/69; PULSE 69; RESP 18; TEMP 36.4; O2SAT 98
[2023-10-12 05:46] VITALS: BP 148/81; PULSE 71; RESP 18; TEMP 36.9; O2SAT 98
[2023-10-12 06:59] LABS: Basophils Absolute Auto 0.1 K/mm3 (0.0-0.1); Basophils Percent Auto 0.4 % (0.2-1.2); Eosinophils Absolute Auto 0.2 K/mm3 (0-0.3); Hematocrit 33.6 % (42.0-52.0); Hemoglobin 11.4 g/dL (14.0-18.0); Immature Granulocyte Absolute 0.71 K/mm3 (0.00-0.031); Immature Granulocyte Percent A 4.6 % (0-0.5); Lymphocytes Absolute Auto 0.92 K/mm3 (0.9-3.2); Lymphocytes Percent Auto 5.9 % (18.3-44.2); Mean Corpuscular HGB Conc 33.9 g/dl (32-36); Mean Corpuscular Hemoglobin 28.6 pg (26-34); Mean Corpuscular Volume 84.4 fl (80-100); Mean Platelet Volume 9.6 fl (7.4-10.4); Monocytes Percent Auto 6.2 % (2.6-8.5); Neutrophils Absolute Auto 12.8 K/mm3 (1.3-6.7); Neutrophils Percent Auto 81.9 % (45.5-73.1); Platelet Count Result 460 k/mm3 (150-375); Red Blood Count 3.98 M/mm3 (4.6-6.20); Red Cell Distribution Width 16.6 % (11.5-14.5); White Blood Count 15.6 K/mm3 (4.5-10.0)
[2023-10-12 07:03] LABS: Estimated CRCL calculation 28 ml/min; Estimated Glomerular Filt Rate 26
[2023-10-12 07:08] LABS: Alanine Aminotransferase 70 U/L (6-50); Albumin Level 2.6 g/dL (3.5-5.1); Alkaline Phosphatase 191 U/L (38-126); Anion Gap 7 mmol/L (8-16); Aspartate Amino Transferase 37 U/L (17-59); Bilirubin,Total 1.1 mg/dL (0.2-1.3); Blood Urea Nitrogen 46 mg/dL (9-20); Calcium 7.9 mg/dL (8.4-10.2); Carbon Dioxide 23 mmol/L (22-30); Chloride 112 mmol/L (98-107); Estimated CRCL calculation 28 ml/min; Estimated Glomerular Filt Rate 26; Glucose 105 mg/dL (65-110); Potassium 3.5 mmol/L (3.4-5.0); Sodium 142 mmol/L (137-145)
[2023-10-12] MEDS: LINEZOLID 600 MG TABLET PO (09:47)
--- NOTE | 2023-10-12 10:00 | PM.PNNEP ---
Progress Note: A&P Assessment and Plan (1) MIRA (acute kidney injury): Code(s): N17.9 - Acute kidney failure, unspecified Status: Acute Assessment and Plan: slow improvement noted normal baseline creatinine earlier this year presumably secondary to poor oral intake/GI losses and infection/bacteremia possible protracted ATN from infection issues (see #2) evaluation to date: urine eosinophils negative urine electrolytes prerenal CT with enlarged right kidney with peripheral hypoattenuation. The differential diagnosis includes pyelonephritis and subacute subcapsular hematoma. renal ultrasound with nonspecific minimal right perinephric fluid agree with gentle IVF hydration follow repeat labs and UOP (2) Bacteremia: Code(s): R78.81 - Bacteremia Status: Acute Assessment and Plan: positive blood culture noted on antibiotics culture with Enteroccoccus -- source?? repeat culture negative to date (3) Abdominal pain: Code(s): R10.9 - Unspecified abdominal pain Status: Acute Assessment and Plan: related to #3 and #4 (?) CT imaging and abdominal ultrasound noted continue supportive therapy (4) Diarrhea: Code(s): R19.7 - Diarrhea, unspecified Status: Acute Assessment and Plan: unclear etiology seems to be resolving so stool studies and C. diff toxin assay not ordered s/p IVF hydration follow symptoms (5) Pyelitis: Code(s): N12 - Tubulo-interstitial nephritis, not specified as acute or chronic Status: Acute Assessment and Plan: as suggested by admission CT scan follow culture data -- urine culture negative on antibiotics consider repeat imaging (MRI) once infection/bacteremia clears Will continue to follow. Subjective Date/time seen: 10/12/23 10:00 Interval history: Follow-up for acute kidney injury/acute renal failure. Renal function continues to slowly improve with ongoing therapy/interventions; discharge delayed yesterday as was unclear if insurance would pay for outpatient antibiotics needed (linezolid); no apparent distress noted at the time of my visit; no issue/events overnight or earlier this morning. Exam Narrative: General: WD/WN male in NAD Heart: normal S1 and S2; no rub Lungs: clear to auscultation Abdomen: soft, nontender, nondistended, positive bowel sounds Extremities: no cyanosis or clubbing; no edema Skin: warm and dry Objective Data Vital Signs Vital Signs: Vital Signs Temp Pulse Resp BP Pulse Ox O2 Del Method 10/12/23 09:45 Room Air 10/12/23 05:46 98.4 F 71 18 148/81 H 98 10/11/23 21:25 97.6 F 69 18 150/69 H 98 10/11/23 20:00 Room Air 10/11/23 16:22 98.0 F 10/11/23 14:00 96.7 F L 74 16 145/73 H 96 Intake/Output Intake/Output: Intake & Output 10/09/23 10/10/23 10/11/23 10/12/23 23:59 23:59 23:59 23:59 Intake Total 3140 7233 9832 875 Balance 3140 1503 4276 318 Meds/Results Medications: Active Medications Generic Name Dose Route Start Last Admin Trade Name Freq PRN Reason Stop Dose Admin Acetaminophen 1,000 mg 10/09/23 05:49 10/09/23 14:27 Acetaminophen 500 Mg Tablet PO 1,000 mg Q6H PRN Administration Mild Pain (1-3) or Fever Diphenhydramine HCl 25 mg 10/11/23 16:09 10/11/23 20:09 Diphenhydramine Hcl Inj 50 Mg/Ml Vial IV PUSH 25 mg Q6H PRN Administration Rash Fluticasone Propionate 1 spray 10/08/23 09:00 10/12/23 09:49 Fluticasone Propionate 0.05% Na Spr 16 Gm Btl (*Bkc) NASAL Not Given BID HUGH Sodium Chloride 1,000 mls @ 75 mls/hr 10/07/23 23:20 10/11/23 04:56 Normal Saline Iv IV CONT 75 mls/hr .[id number] HUGH Administration Ampicillin Sodium 1 gm in 50 mls @ 100 mls/hr 10/11/23 23:00 10/12/23 09:47 Ampicillin 1 Gm/Ns 50 Ml IVPB Not Given Q12HR HUGH Linezolid 600 mg 10/10/23 12:20 10/12/23 09:47 Linezolid
--- NOTE | 2023-10-12 10:00 | P.PNNP_ITS ---
Progress Note: A&P Assessment and Plan (1) MIRA (acute kidney injury): Code(s): N17.9 - Acute kidney failure, unspecified Status: Acute Assessment and Plan: * slow improvement noted * normal baseline creatinine earlier this year * presumably secondary to poor oral intake/GI losses and infection/bacteremia * possible protracted ATN from infection issues (see #2) * evaluation to date: * urine eosinophils negative * urine electrolytes prerenal * CT with enlarged right kidney with peripheral hypoattenuation. The differential diagnosis includes pyelonephritis and subacute subcapsular hematoma. * renal ultrasound with nonspecific minimal right perinephric fluid * agree with gentle IVF hydration * follow repeat labs and UOP (2) Bacteremia: Code(s): R78.81 - Bacteremia Status: Acute Assessment and Plan: * positive blood culture noted * on antibiotics * culture with Enteroccoccus -- source?? * repeat culture negative to date (3) Abdominal pain: Code(s): R10.9 - Unspecified abdominal pain Status: Acute Assessment and Plan: * related to #3 and #4 (?) * CT imaging and abdominal ultrasound noted * continue supportive therapy (4) Diarrhea: Code(s): R19.7 - Diarrhea, unspecified Status: Acute Assessment and Plan: * unclear etiology * seems to be resolving so stool studies and C. diff toxin assay not ordered * s/p IVF hydration * follow symptoms (5) Pyelitis: Code(s): N12 - Tubulo-interstitial nephritis, not specified as acute or chronic Status: Acute Assessment and Plan: * as suggested by admission CT scan * follow culture data -- urine culture negative * on antibiotics * consider repeat imaging (MRI) once infection/bacteremia clears Will continue to follow. Subjective Date/time seen: 10/12/23 10:00 Interval history: Follow-up for acute kidney injury/acute renal failure. Renal function continues to slowly improve with ongoing therapy/interventions; discharge delayed yesterday as was unclear if insurance would pay for outpatient antibiotics needed (linezolid); no apparent distress noted at the time of my visit; no issue/events overnight or earlier this morning. Exam Narrative: General: WD/WN male in NAD Heart: normal S1 and S2; no rub Lungs: clear to auscultation Abdomen: soft, nontender, nondistended, positive bowel sounds Extremities: no cyanosis or clubbing; no edema Skin: warm and dry Objective Data Vital Signs Vital Signs: Vital Signs Temp Pulse Resp BP Pulse Ox O2 Del Method 10/12/23 09:45 Room Air 10/12/23 05:46 98.4 F 71 18 148/81 H 98 10/11/23 21:25 97.6 F 69 18 150/69 H 98 10/11/23 20:00 Room Air 10/11/23 16:22 98.0 F 10/11/23 14:00 96.7 F L 74 16 145/73 H 96 Intake/Output Intake/Output: Intake & Output 10/09/23 10/10/23 10/11/23 10/12/23 23:59 23:59 23:59 23:59 Intake Total 3140 5668 2399 224 Balance 3140 4132 2398 310 Meds/Results Medications: Active Medications Generic Name Dose Route Start Last Admin Trade Name Freq PRN Reason Stop Dose Admin Acetaminophen 1,000 mg 10/09
== END 2023-10-12 13:46 | disposition home or self-care (01) | DRG 372 ==
LOC: ANHED 12:18 → ANH3MEDSUR 18:24
PROVIDERS: Emergency Medicine; Internal Medicine; Internal Medicine Nephrology; Admitting Provider Family Medicine; Emergency Provider Student in an Organized Health Care Education/Training Program; PCP Family Medicine; Visit Provider Student in an Organized Health Care Education/Training Program
DX: A04.8 Other specified bacterial intestinal infections (principal); N12 Tubulo-interstitial nephritis, not specified as acute or chronic; N17.9 Acute kidney failure, unspecified; R78.81 Bacteremia; G47.33 Obstructive sleep apnea (adult) (pediatric); B95.2 Enterococcus as the cause of diseases classified elsewhere; R74.01 Elevation of levels of liver transaminase levels; Z20.822 Contact with and (suspected) exposure to COVID-19
CPT/HCPCS: 36415; 71046; 71250; 74176; 76705; 76775; 80053; 81001; 81050; 82550; 82565; 82570; 83605; 83690; 83735; 84156; 84300; 84540; 85025; 85027; 85999; 86140; 87040; 87086; 87147; 87181; 87186; 87636; 96361; 96374; 99285; A9270; J0290; J0692; J0696; J1200; J2405; J3370; J7030

== ENCOUNTER 2024-02-08 01:49 | Day surgery (SDC) | payer MEDICARE, SELFPAY ==
[2024-01-28 15:29] VITALS: BMI 26.5
--- NOTE | 2024-01-28 15:34 | PC.NURSE ---
Report to the Outpatient Waiting Room, entrance under the green pavilion located off [facility], at time 7:30 on date 02/08/24. Planned Procedure Time: 9:30. Time changes happen often and if your time is changed the preop area will call you the afternoon before. - You and your visitor will be asked to self-screen and do not enter if you have any COVID symptoms. - A mask is optional within the hospital at this time. Patients may have clear liquids (water, carbonated beverages, clear teas, apple juice) until 3 hours prior to surgery with a maximum of 20 ounces. - No food from midnight until time of surgery Take the following medications with a SIP of water the morning of surgery: NONE DO NOT STOP ANY OF YOUR OTHER PRESCRIPTION MEDICATIONS PRIOR TO SURGERY ?EXCEPT THE FOLLOWING Medications to discontinue per physician: VITAMINS/SUPPLEMENTS Date to take last dose: 02/04/24 Please no make-up, nail trinidadian, hairspray, perfume, deodorant, or body powder the day of surgery. No jewelry (including any body piercings) or valuables the day of surgery, leave them at home. Please take a shower or bath the night before, or the morning of, surgery with an antibacterial soap. Wear comfortable, loose fitting clothing. - Jewelry must be removed prior to entering the operating room. Rings and piercings that are not removed may be cut off. - The hospital will not accept responsibility for valuables. - Please leave all valuables, including medications, at home the day of surgery. If you are going home after surgery, a licensed drop hammer pile driver operator must drive you home. - NO public transportation without another adult if you receive anesthesia. - We recommend that an adult stay with you for 24 hours following discharge. - We also recommend that you do not drive, make important decision, drink alcoholic beverages, or take any drugs that were not prescribed by your health care provider for at least 24 hours after your discharge time. Follow any additional instructions given to you from your surgeon. If you or anyone in your household have experienced Covid symptoms in the past week, please notify your surgeon or the nurse liaison at the phone number below for possible testing. Telephone instructions given to PT - ALLYN and asked if any additional questions and then verbalized understanding. Patient advised to call surgeon office or pre surgery nurse liaison [phone] if any additional questions.
[2024-02-08] VITALS (12 sets, daily range): BP systolic 110–165; BP diastolic 62–86; PULSE 58–88; RESP 12–14; TEMP 36.2–36.6; O2SAT 100
--- NOTE | 2024-02-08 07:42 | PM.IMHP ---
H&P: HPI History of Present Illness Date/Time: 02/08/24 07:42 Chief Complaint: right inguinal hernia Narrative: Eduardo is a 63 y/o male who presents to the office at the request of Dr. Daugherty for evaluation of a right inguinal hernia. Patient states he noiced a bulge in the right groin about one year ago. Patient states in October 2023, he had a respirator infection that caused increased coughing. He states after following this the bulge became more painful. He states pain improves after he has a BM. Patient reports a prior history of left inguinal hernia repair. Review of Systems Review of Systems: All systems reviewed & are unremarkable except as noted in HPI and below PMFSH Past Medical History Medical History Abdominal pain MIRA (acute kidney injury) Renal function normal with BUN 27 and creatinine 1.12 on 12/04/2023. Anemia Hemoglobin normal at 13.8 with iron 93 with 30% saturation and ferritin 329 on 12/04/2023. Bacteremia BMI 26.0-26.9,adult BMI 28.0-28.9,adult BMI 31.0-31.9,adult Central sleep apnea asymptomatic after weight loss Chronic bilateral low back pain without sciatica Colon cancer screening COVID-19 (~11/20/21) Deviated nasal septum treated surgically Diarrhea Elevated blood pressure reading in office without diagnosis of hypertension Encounter for wellness examination in adult Facial dermatitis Hypersomnia resolved with weight loss Hypogonadism male Total testosterone 400, free testosterone 49.5 on 12/02/2022. Total testosterone 477 with free testosterone 50.1 on 12/04/2023. Male erectile dysfunction, unspecified 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 Obstructive sleep apnea asymptomatic after weight loss Overweight (BMI 25.0-29.9) Pyelitis Right inguinal hernia (~10/2023) Transaminitis Liver enzymes normal with AST 14 and ALT 14 on 12/04/2023. Surgical History Surgical History H/O left inguinal hernia repair History of nasal surgery repair deviated septum Family History Family History Mother Family history of dementia, Onset Age: 97 Hypertension Grandparent Family history of lung disease, Onset Age: 68 Family history of congestive heart failure, Onset Age: 87 Father Family history of congestive heart failure, Onset Age: 86 Heart disease Hypertension Diabetes mellitus Social History Social History Smoking status: Never smoker Second hand tobacco smoke exposure: No Alcohol intake: current Drinks per week: 5 Substance use: never Substance use type: does not use Lack of Transportation: No Lack of Food: Never True Current Housing: I Have Housing Concerned About Future Housing: No Difficulty Paying Gas/Electric Bills: No Difficulty Paying for Meds: No Currently Unemployed: No Education: Associate Degree Difficulty w/ Childcare or Family Care: No Living arrangements: with family Occupation/Education: occupation 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 Spiritual care concerns: No Meds Home Medications and Allergies Home Medications Medication Instructions Recorded Confirmed Type Adult One Daily Multivitamin 1 tablet PO DAILY 09/10/20 01/28/24 History [facility] 1 tablet PO DAILY 09/10/20 01/28/24 History ascorbate sodium (vitamin C) 1 tablet PO DAILY 09/10/20 01/28/24 History co [id number] oil-omega 3-E 1 tablet PO DAILY 09/10/20 01/28/24 History fluticasone propionate 50 1 spray intranasal BID 04/22/21 01/28/24 History mcg/actuation nasal spray,suspension loratadine 10 mg tablet (Claritin) 10 mg PO DAILY PRN allergy symptoms 04/22/21 01/28/24 History Allergies Allergy/AdvReac Type Severity Reaction Status Date / Time Penicill
--- NOTE | 2024-02-08 07:44 | WPDHPUPDATE1 ---
History and Physical Update Update Date/Time: 02/08/24 07:44 History and Physical has been reviewed, including an updated exam of the patient. There are NO changes in the patient's condition. Risks, benefits, and alternatives have been discussed and questions answered. Patient agrees to proceed with procedure.
--- NOTE | 2024-02-08 08:55 | WPDANESEPPF ---
Anes - Initial Pre Proc Eval Procedure: Operation Date: 02/08/24 09:30 Proposed Procedures p Robotic Assisted Right Inguinal Hernia Repair with Mesh - Henrietta John MD Date/Time: 02/08/24 08:55 Surgeon: Henrietta John MD Pre Op Diagnosis: Right Inguinal Hernia Patient Data Age: 64 Gender: M Height: 1.78 m Weight: 83.9 kg Allergies Allergy/AdvReac Type Severity Reaction Status Date / Time Penicillins Allergy Unknown Rash Verified 01/28/24 15:28 Home Medications Medication Instructions Recorded Confirmed Type Adult One Daily Multivitamin 1 tablet PO DAILY 09/10/20 01/28/24 History [facility] 1 tablet PO DAILY 09/10/20 01/28/24 History ascorbate sodium (vitamin C) 1 tablet PO DAILY 09/10/20 01/28/24 History co [id number] oil-omega 3-E 1 tablet PO DAILY 09/10/20 01/28/24 History fluticasone propionate 50 1 spray intranasal BID 04/22/21 01/28/24 History mcg/actuation nasal spray,suspension loratadine 10 mg tablet (Claritin) 10 mg PO DAILY PRN allergy symptoms 04/22/21 01/28/24 History Patient hx anesthesia problems: none Family hx anesthesia problems: none Results Review: All pre-operative results and documents have been reviewed as part of the pre-operative evaluation. [facility] Past Medical History Medical History Abdominal pain MIRA (acute kidney injury) Renal function normal with BUN 27 and creatinine 1.12 on 12/04/2023. Anemia Hemoglobin normal at 13.8 with iron 93 with 30% saturation and ferritin 329 on 12/04/2023. Bacteremia BMI 26.0-26.9,adult BMI 28.0-28.9,adult BMI 31.0-31.9,adult Central sleep apnea asymptomatic after weight loss Chronic bilateral low back pain without sciatica Colon cancer screening COVID-19 (~11/20/21) Deviated nasal septum treated surgically Diarrhea Elevated blood pressure reading in office without diagnosis of hypertension Encounter for wellness examination in adult Facial dermatitis Hypersomnia resolved with weight loss Hypogonadism male Total testosterone 400, free testosterone 49.5 on 12/02/2022. Total testosterone 477 with free testosterone 50.1 on 12/04/2023. Male erectile dysfunction, unspecified 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 Obstructive sleep apnea asymptomatic after weight loss Overweight (BMI 25.0-29.9) Pyelitis Right inguinal hernia (~10/2023) Transaminitis Liver enzymes normal with AST 14 and ALT 14 on 12/04/2023. Surgical History Surgical History H/O left inguinal hernia repair History of nasal surgery repair deviated septum Family History Family History Mother Family history of dementia, Onset Age: 97 Hypertension Grandparent Family history of lung disease, Onset Age: 68 Family history of congestive heart failure, Onset Age: 87 Father Family history of congestive heart failure, Onset Age: 86 Heart disease Hypertension Diabetes mellitus Social History Social History Smoking status: Never smoker Second hand tobacco smoke exposure: No Alcohol intake: current Drinks per week: 5 Substance use: never Substance use type: does not use Lack of Transportation: No Lack of Food: Never True Current Housing: I Have Housing Concerned About Future Housing: No Difficulty Paying Gas/Electric Bills: No Difficulty Paying for Meds: No Currently Unemployed: No Education: Associate Degree Difficulty w/ Childcare or Family Care: No Living arrangements: with family Occupation/Education: occupation Additional occupation/education comments: Supervisor [employer] Spiritual care concerns: No Anes - Eval Final PreProcedure Day of Procedure 02/08/24 08:55 Patient weight: normal Heart: regular rate and rhythm Lungs: palmira
[2024-02-08] MEDS: LACTATED RINGERS 1,000 ML 30 ML IV CONT ×2 (09:00→10:33)
[2024-02-08] MEDS: KETOROLAC 15 MG/ML VIAL (*BKC) IV PUSH (09:00)
[2024-02-08] MEDS: ACETAMINOPHEN 500 MG TABLET 1000 MG PO (09:00)
[2024-02-08] MEDS: ceFAZolin 2 GM/D5W 50 ML 2 GM/50 ML BAG IVPB (09:14)
[2024-02-08] MEDS: BUPIVACAINE/EPINEPHRINE 0.5% 50 ML VIAL 30 ML INFILTRATE (09:44)
--- NOTE | 2024-02-08 10:25 | P.OP_ITS ---
Procedure Note - Detailed Date of Procedure 02/08/24 Pre-op Diagnosis Right Inguinal Hernia Post-op Diagnosis Same Procedure Performed robotic assisted right inguinal hernia repair with mesh Surgeon Henrietta John MD Anesthesia General Indications 64-year-old male with progressively worsening right inguinal hernia over the last few months Findings pantaloon right inguinal hernia Description of Procedure Patient was brought into the operating room and placed in the supine position. After adequate induction of general anesthesia, the patient was prepped and draped in normal sterile fashion. A time-out was then done to verify the patient's identity, as well as the procedure being performed. Began by making a 8 mm incision in the supraumbilical region, a Veress needle was then placed into the peritoneal cavity. CO2 gas was then insufflated and after adequate pneumoperitoneum was achieved, the Veress needle was removed. I then placed an 8 mm trocar through this incision. I then placed the endoscope through this trocar site and under direct visualization placed 2 further 8 mm ports in the right and left mid abdomen. The [employer] robot was then docked to the 3 trocar sites. I then scrubbed out and went to the robotic console. Upon examining the pelvis, it was noted that the patient had a large right inguinal hernia. The left side was examined and no hernia defect was noted. I began by making a preperitoneal flap approximately 6 cm superior to the defect. This flap was carried medially past the umbilical ligaments in laterally to the transversalis. It then began dissection of my medial compartment taking this down to the pubic tubercle. There was noted to be a small direct hernia that was carefully reduced. I then began the lateral dissection taking this down to the transvers raj fascia. Once these compartments were achieved, I began dissection around the cord structures. A large indirect hernia was noted at this point. Using careful dissection, was able to reduce indirect hernia sac off the cord structures. Once this was adequately done, I went ahead and placed a large piece of 3D Max mesh into the abdominal cavity. The mesh was carefully positioned, centering the center of the mesh over the indirect defect. Once this was done, was very satisfied with our repair. Using 3-0 Vicryl sutures, I tacked the mesh medially to Todd's ligament. Two lateral sutures were placed from the mesh to the transversalis fascia. I then closed the peritoneal flap with a running 2.0 V Lock suture. The abdomen was then desufflated, and all ports were removed. All incisions were then closed with the 4.0 monocryl suture. Dermabond was placed on each wound. The patient tolerated the procedure well, was extubated in the operating room postoperatively, and will now be t ransferred to the recovery room in stable condition. Implants large 3DMax mesh Estimated Blood Loss 10 Drains No Packing No Pathology None sent Complications No immediate complications Condition Stable Disposition PACU [facility] Billing Surgery - Charge Forward: Surgery Billing
[2024-02-08] MEDS: fentaNYL CITRATE INJ (*CRX) 100 MCG/2 ML VIAL 25 MCG IV PUSH ×6 (10:57→11:20)
[2024-02-08] MEDS: oxyCODONE HCL (*CRX) 5 MG TAB IR PO (11:45)
== END 2024-02-08 13:15 | disposition home or self-care (01) ==
PROVIDERS: PCP Family Medicine; Visit Provider Surgery
PROC: 8E0Y4CZ Robotic Assisted Procedure of Lower Extremity, Percutaneous Endoscopic Approach (ICD-10-PCS; CPT 49650; principal; 2024-02-08 09:30)
DX: K40.90 Unilateral inguinal hernia, without obstruction or gangrene, not specified as recurrent (principal); D64.9 Anemia, unspecified; G89.29 Other chronic pain; M54.50 Low back pain, unspecified; N52.9 Male erectile dysfunction, unspecified; E29.1 Testicular hypofunction; G47.33 Obstructive sleep apnea (adult) (pediatric); Z98.890 Other specified postprocedural states; Z85.828 Personal history of other malignant neoplasm of skin; Z82.49 Family history of ischemic heart disease and other diseases of the circulatory system
CPT/HCPCS: 49650; S2900; 36415; 86850; 86900; 86901; A9270; C1781; J0690; J1100; J1596; J1885; J2371; J2405; J2704; J3010; J7120